=== PATIENT | female | born 1980 | race Caucasian/White ===

== ENCOUNTER 2020-09-28 12:19 | Inpatient (IN) | payer MEDICARE, SELFPAY ==
[2020-09-28] VITALS (9 sets, daily range): BP systolic 103–142; BP diastolic 57–86; PULSE 81–107; RESP 14–22; TEMP 36.6–36.8; O2SAT 93–98; BMI 26.7
--- NOTE | 2020-09-28 14:14 | CT_ITS ---
WS: [id number] CT head wo con* 13265 REASON FOR EXAM: AMS IV CONTRAST ADMINISTERED: Noncontrast TOTAL EXAM DLP: 1161.[address] scans at [facility] use at least one of these dose optimization techniques: automat ed exposure control; mA and/or kV adjustment per patient size (includes targeted exams where dose is matched to clinical indication); or iterative reconstruction. FINDINGS: Bony calvarium is intact. There is no midline shift or other significant mass effect. No findings of intracranial hemorrhage. There are 2 small areas of vague hypoattenuation in the great white matter junction just above the le jose guadalupe of the basal ganglia in the left frontoparietal region. (Axial image 28) No other significant foc al brain parenchymal abnormality. No ventricular dilatation. No abnormality within the posterior fossa. CT/CT head wo con* 56509 IMPRESSION: The small areas of vague low attenuation described above are not readily defina ble on the previous CT scan of 08/22/2018. Do not think this represents an acute finding. Given a history of MS this may represent areas of demyelinization, MS plaques. No other significant findings.
--- NOTE | 2020-09-28 16:19 | ED_ITS ---
Documented by User: Evgeny Stroud DO 09/29/20 11:02 HPI - Altered Mental Status General: Chief Complaint: Altered Mental Status Stated Complaint: seizure 2days ago/insomnia,ams/nausea Time Seen by Provider: 09/28/20 16:18 History of Present Illness: HPI narrative: 40-year-old female brought to the emergency room by private vehicle. Recently was having a seizure began about 1 year ago had a seizure of couple days ago and increased her Lyrica. Normally patient is alert and oriented x4 she has a history of MS. She is confused at this point she believes is February 2024. complaint: altered mental status and confusion Onset (ago): hour(s) Timing confirmed by: spouse Severity: severe Consistency of symptoms: Getting Worse Context: other (History of MS) Associated symptoms: Reports delusions; Deny auditory hallucinations, visual hallucinations, depression, homicidal ideation, racing thoughts or suicidal ideation Review of Systems Const: Denies: fever(s), chills, body aches, change in appetite, fatigue or malaise Card: Denies: chest pain, edema, dyspnea on exertion or orthopnea Resp: Denies: dyspnea, productive cough or non-productive cough GI: Denies: abdominal pain, nausea, vomiting, hematemesis, coffee ground emesis, diarrhea, constipation, bloating, hematochezia or melena : Denies: flank pain, difficulty voiding, dysuria, urinary frequency or urinary urgency Skin/Breast: Denies: rash or pruritus Psych: Denies: depression, visual hallucinations, auditory hallucinations, suicidal ideation or homicidal ideation [facility] ED PFSH: Medical History (Updated 09/28/20 @ 22:03 by Zoë Miles) Anxiety and depression Bipolar disorder Chronic pain Multiple sclerosis Surgical History (Updated 09/28/20 @ 21:34 by Hiram Rush MD) History of cholecystectomy History of hysterectomy Family History (Updated 09/28/20 @ 21:34 by Hiram Rush MD) Other CAD (coronary artery disease) Diabetes Social History (Updated 09/28/20 @ 21:34 by Hiram Rush MD) Smoking and tobacco status: current every day smoker Alcohol intake: never Substance/Drug Use: never Physical Exam Const: COMMON NORMALS: no acute distress GENERAL APPEARANCE: cooperative and comfortable ORIENTATION/CONSCIOUSNESS: Yes awake HENMT: COMMON NORMALS: normocephalic, atraumatic and hearing grossly normal bilaterally HEAD & SCALP: normocephalic and atraumatic Neck/C-Spine: COMMON NORMALS: no JVD Resp: COMMON NORMALS: normal respiratory effort, No retractions, No use of accessory muscles and clear to auscultation bilaterally AUSCULTATION: clear to auscultation bilaterally Cardio: COMMON NORMALS: no JVD, regular rate, regular rhythm and No murmurs present (Cardio) RATE: regular rate RHYTHM: regular rhythm GI: COMMON NORMALS: Soft to palpation and No hepatosplenomegaly present AUSCULTATION: Yes normoactive bowel sounds PALPATION: Yes Soft to palpation, No Tenderness to palpation present (GI), No Guarding due to palpation present (GI) and Yes No hepatosplenomegaly present Extremity: COMMON NORMALS: normal to inspection, capillary refill normal, no clubbing, cyanosis or edema, no calf tenderness and no pedal edema Psych: THOUGHT CONTENT: Yes delusions Skin: COMMON NORMALS: no rashes or lesions noted GENERAL SKIN EXAM: no rashes or lesions noted Course Vital Signs: Vital signs: Vital Signs Temperature 98.3 F 09/29/20 07:49 Pulse Rate 89 09/29/20 07:49 Respiratory Rate 16 09/29/20 07:49 Blood Pressure 121/82 09/29/20 07:49 Pulse Oximetry 94 09/29/20 07:49 MDM - Altered Mental Status MDM Narrative: Medical decision making narrative: Care turned over to Dr. Feng. Work-up in progress. See his his notes for final diagnosis and disposition. Lab Data: Labs: Lab Results 09/28/20 09/28/20 09/28/20 Range/Units 17:17 17:17 17:17 WBC 13.0 H (4.0-10.0) 10^3/ uL RBC 5.08 (4.1-5.3) 10^6/u L Hgb 15.0 (11.5-15.3) g/dL Hct 48.0 H (37.0-47.0) % MCV 94.5 (81-99) fL MCH 29.5 (28.0-34.0) pg MCHC 31.3 (30.0-36.0) g/dL RDW 13.9 (12.1-15.1) % Plt Count 308 (130-400) 10^3/c mm MPV 10.8 H (7.4-10.4) fL Neut % (Auto) 65.3 % Lymph % (Auto) 27.2 % Clark % (Auto) 6.8 % Eos % (Auto) 0.2 % Baso % (Auto) 0.2 % Neut # (Auto) 8.50 H (1.8-7.7) 10^3/u L Lymph # (Auto) 3.6 (0.8-4.8) 10^3/u L Clark # (Auto) 0.9 (0.2-0.9) 10^3/u L Eos # (Auto) 0.0 (0.0-0.8) 10^3/u L Baso # (Auto) 0.0 (0.0-0.1) 10^3/u L Nucleated RBC % (a uto) 0 % Nucleated RBCs # 0.0 /100WBC Sodium 140 (136-145) mmol/L Potassium 3.5 (3.5-5.1) mmol/L Chloride 100 (98-107) mmol/L Carbon Dioxide 27 (22-29) mmol/L Anion Gap 16.5 (5-19) BUN 10 (6-20) mg/dL Creatinine 0.6 (0.5-0.9) mg/dL GFR Calculation 110.7 (90-130) mL/min Glucose 101 (65-115) mg/dL Calculated Osmolal ity 289 (285-295) mOsm/k g Lactic Acid 0.9 (0.5-2.2) mmol/L Calcium 9.5 (8.5-10.5) mg/dL Magnesium 2.2 (1.7-2.3) mg/dL Total Bilirubin 0.3 (0.15-1.2) mg/dL AST 17 (0-32) U/L ALT 16 (0-33) U/L Alkaline Phosphata se 59 (35-105) IU/L Ammonia (11-51) umol/L Troponin T Baselin e (0-10) ng/L Total Protein 7.8 (6.6-8.7) g/dL Albumin 4.6 (3.5-5.2) g/dL Globulin 3.2 (1.3-4.6) g/dL Urine Color (Yellow) Urine Appearance (CLEAR) Urine pH (5-7) Ur Specific Gravit y (1.005-1.030) Urine Protein (Negative) Urine Glucose (UA) (Normal) Urine Ketones (Negative) Urine Blood (Negative) Urine Nitrate (Negative) Urine Bilirubin (Negative) Urine Urobilinogen (Negative) mg/dL Ur Leukocyte Radha ase (Negative) Urine RBC (0-2) /hpf Urine WBC (0-5) /hpf Ur Squamous Epith Cells (0-5) /hpf Amorphous Sediment Urine Bacteria (NONE) /hpf Urine Mucus /hpf Urine Opiates Scre en (Negative) ng/mL Ur Barbiturates Sc reen (Negative) ng/mL Ur Phencyclidine S crn (Negative) ng/mL Ur Amphetamines Sc reen (Negative) ng/mL U Benzodiazepines Scrn (Negative) ng/mL Urine Cocaine Scre en (Negative) ng/mL U Marijuana (THC) Screen (Negative) ng/mL 09/28/20 09/28/20 09/28/20 Range/Units 17:17 17:17 19:45 WBC (4.0-10.0) 10^3/ uL RBC (4.1-5.3) 10^6/u L Hgb (11.5-15.3) g/dL Hct (37.0-47.0) % MCV (81-99) fL MCH (28.0-34.0) pg MCHC (30.0-36.0) g/dL RDW (12.1-15.1) % Plt Count (130-400) 10^3/c mm MPV (7.4-10.4) fL Neut % (Auto) % Lymph % (Auto) % Clark % (Auto) % Eos % (Auto) % Baso % (Auto) % Neut # (Auto) (1.8-7.7) 10^3/u L Lymph # (Auto) (0.8-4.8) 10^3/u L Clark # (Auto) (0.2-0.9) 10^3/u L Eos # (Auto) (0.0-0.8) 10^3/u L Baso # (Auto) (0.0-0.1) 10^3/u L Nucleated RBC % (a uto) % Nucleated RBCs # /100WBC Sodium (136-145) mmol/L Potassium (3.5-5.1) mmol/L Chloride (98-107) mmol/L Carbon Dioxide (22-29) mmol/L Anion Gap (5-19) BUN (6-20) mg/dL Creatinine (0.5-0.9) mg/dL GFR Calculation (90-130) mL/min Glucose (65-115) mg/dL Calculated Osmolal ity (285-295) mOsm/k g Lactic Acid (0.5-2.2) mmol/L Calcium (8.5-10.5) mg/dL Magnesium (1.7-2.3) mg/dL Total Bilirubin (0.15-1.2) mg/dL AST (0-32) U/L ALT (0-33) U/L Alkaline Phosphata se (35-105) IU/L Ammonia 19 (11-51) umol/L Troponin T Baselin e 6 (0-10) ng/L Total Protein (6.6-8.7) g/dL Albumin (3.5-5.2) g/dL Globulin (1.3-4.6) g/dL Urine Color Yellow (Yellow) Urine Appearance Clear (CLEAR) Urine pH 6.5 (5-7) Ur Specific Gravit y 1.020 (1.005-1.030) Urine Protein Neg (Negative) Urine Glucose (UA) Norm (Normal) Urine Ketones 2+ H (Negative) Urine Blood 3+ H (Negative) Urine Nitrate Negative (Negative) Urine Bilirubin 1+ H (Negative) Urine Urobilinogen 1 H (Negative) mg/dL Ur Leukocyte Radha ase Negative (Negative) Urine RBC 40-50 H (0-2) /hpf Urine WBC 0-4 H (0-5) /hpf Ur Squamous Epith Cells 0-4 H (0-5) /hpf Amorphous Sediment Not Reportable Urine Bacteria 2+ H (NONE) /hpf Urine Mucus 1+ /hpf Urine Opiates Scre en (Negative) ng/mL Ur Barbiturates Sc reen (Negative) ng/mL Ur Phencyclidine S crn (Negative) ng/mL Ur Amphetamines Sc reen (Negative) ng/mL U Benzodiazepines Scrn (Negative) ng/mL Urine Cocaine Scre en (Negative) ng/mL U Marijuana (THC) Screen (Negative) ng/mL 09/28/20 Range/Units 19:45 WBC (4.0-10.0) 10^3/ uL RBC (4.1-5.3) 10^6/u L Hgb (11.5-15.3) g/dL Hct (37.0-47.0) % MCV (81-99) fL MCH (28.0-34.0) pg MCHC (30.0-36.0) g/dL RDW (12.1-15.1) % Plt Count (130-400) 10^3/c mm MPV (7.4-10.4) fL Neut % (Auto) % Lymph % (Auto) % Clark % (Auto) % Eos % (Auto) % Baso % (Auto) % Neut # (Auto) (1.8-7.7) 10^3/u L Lymph # (Auto) (0.8-4.8) 10^3/u L Clark # (Auto) (0.2-0.9) 10^3/u L Eos # (Auto) (0.0-0.8) 10^3/u L Baso # (Auto) (0.0-0.1) 10^3/u L Nucleated RBC % (a uto) % Nucleated RBCs # /100WBC Sodium (136-145) mmol/L Potassium (3.5-5.1) mmol/L Chloride (98-107) mmol/L Carbon Dioxide (22-29) mmol/L Anion Gap (5-19) BUN (6-20) mg/dL Creatinine (0.5-0.9) mg/dL GFR Calculation (90-130) mL/min Glucose (65-115) mg/dL Calculated Osmolal ity (285-295) mOsm/k g Lactic Acid (0.5-2.2) mmol/L Calcium (8.5-10.5) mg/dL Magnesium (1.7-2.3) mg/dL Total Bilirubin (0.15-1.2) mg/dL AST (0-32) U/L ALT (0-33) U/L Alkaline Phosphata se (35-105) IU/L Ammonia (11-51) umol/L Troponin T Baselin e (0-10) ng/L Total Protein (6.6-8.7) g/dL Albumin (3.5-5.2) g/dL Globulin (1.3-4.6) g/dL Urine Color (Yellow) Urine Appearance (CLEAR) Urine pH (5-7) Ur Specific Gravit y (1.005-1.030) Urine Protein (Negative) Urine Glucose (UA) (Normal) Urine Ketones (Negative) Urine Blood (Negative) Urine Nitrate (Negative) Urine Bilirubin (Negative) Urine Urobilinogen (Negative) mg/dL Ur Leukocyte Radha ase (Negative) Urine RBC (0-2) /hpf Urine WBC (0-5) /hpf Ur Squamous Epith Cells (0-5) /hpf Amorphous Sediment Urine Bacteria (NONE) /hpf Urine Mucus /hpf Urine Opiates Scre en Negative (Negative) ng/mL Ur Barbiturates Sc reen Negative (Negative) ng/mL Ur Phencyclidine S crn Negative (Negative) ng/mL Ur Amphetamines Sc reen Negative (Negative) ng/mL U Benzodiazepines Scrn Positive H (Negative) ng/mL Urine Cocaine Scre en Negative (Negative) ng/mL U Marijuana (THC) Screen Negative (Negative) ng/mL Discharge Plan Discharge Patient Disposition: Admitted As Inpatient Admit Provider: Hiram Rush Clinical Impression: Acute alteration in mental status Condition: Stable Referrals: Inez Trivedi DO [Primary Care Provider] - Discharge Date/Time: 09/28/20 23:37 Sign Out Sign Out Data: Patient Sign Out occurred on 09/28/20 at 18:57. Patient's care was discussed, and care was transferred from to Zoë Miles. Coding Level of Care Code ED B2B Outside Sales Representative for Chg Fwd Exam Comprehensive Documented by User: Zoë Miles 09/29/20 01:36 HPI - Altered Mental Status General: Chief Complaint: Altered Mental Status Stated Complaint: seizure 2days ago/insomnia,ams/nausea Time Seen by Provider: 09/28/20 16:18 PFS ED PFSH: Medical History (Updated 09/28/20 @ 22:03 by Zoë Miles) Anxiety and depression Bipolar disorder Chronic pain Multiple sclerosis Surgical History (Updated 09/28/20 @ 21:34 by Hiram Rush MD) History of cholecystectomy History of hysterectomy Family History (Updated 09/28/20 @ 21:34 by Hiram Rush MD) Other CAD (coronary artery disease) Diabetes Social History (Updated 09/28/20 @ 21:34 by Hiram Rush MD) Smoking and tobacco status: current every day smoker Alcohol intake: never Substance/Drug Use: never Course Vital Signs: Vital signs: Vital Signs Temperature 98.3 F 09/29/20 07:49 Pulse Rate 89 09/29/20 07:49 Respiratory Rate 16 09/29/20 07:49 Blood Pressure 121/82 09/29/20 07:49 Pulse Oximetry 94 09/29/20 07:49 MDM - Altered Mental Status MDM Narrative: Medical decision making narrative: 1916 -Case turned over to me at change of shift from Dr. Stroud. Please see his notes for his history, physical exam and medical decision-making notes. Upon my history the patient is confused and her states she is been confused since yesterday. Yesterday she was much more somnolent and would not say much. He states that she has not slept in 2 nights. She is also been vomiting. He states everything that she eats or drinks seems to be vomited back up. Today she is talking more but has not complained of any abdominal pain. He states that today she just acts inappropriately such as laughing at things that are serious and is just bizarre in her behavior. Patient did have seizures on Thursday. 1 in the morning and 1 in the evening. This would be the second and third seizure of the patient's life. Otherwise the patient has not complained or exhibited any other problems. 2050 -Case endorsed to Dr. Rush. This is possibly a medication reaction versus another type of infectious etiology. I did discuss performing a lumbar puncture with Dr. Rush and after he is seen the patient he will determine whe ther or not he wants to proceed with this. Lab Data: Attestation: I reviewed the patient's lab results. Labs: Lab Results 09/28/20 09/28/20 09/28/20 Range/Units 17:17 17:17 17:17 WBC 13.0 H (4.0-10.0) 10^3/ uL RBC 5.08 (4.1-5.3) 10^6/u L Hgb 15.0 (11.5-15.3) g/dL Hct 48.0 H (37.0-47.0) % MCV 94.5 (81-99) fL MCH 29.5 (28.0-34.0) pg MCHC 31.3 (30.0-36.0) g/dL RDW 13.9 (12.1-15.1) % Plt Count 308 (130-400) 10^3/c mm MPV 10.8 H (7.4-10.4) fL Neut % (Auto) 65.3 % Lymph % (Auto) 27.2 % Clark % (Auto) 6.8 % Eos % (Auto) 0.2 % Baso % (Auto) 0.2 % Neut # (Auto) 8.50 H (1.8-7.7) 10^3/u L Lymph # (Auto) 3.6 (0.8-4.8) 10^3/u L Clark # (Auto) 0.9 (0.2-0.9) 10^3/u L Eos # (Auto) 0.0 (0.0-0.8) 10^3/u L Baso # (Auto) 0.0 (0.0-0.1) 10^3/u L Nucleated RBC % (a uto) 0 % Nucleated RBCs # 0.0 /100WBC Sodium 140 (136-145) mmol/L Potassium 3.5 (3.5-5.1) mmol/L Chloride 100 (98-107) mmol/L Carbon Dioxide 27 (22-29) mmol/L Anion Gap 16.5 (5-19) BUN 10 (6-20) mg/dL Creatinine 0.6 (0.5-0.9) mg/dL GFR Calculation 110.7 (90-130) mL/min Glucose 101 (65-115) mg/dL Calculated Osmolal ity 289 (285-295) mOsm/k g Lactic Acid 0.9 (0.5-2.2) mmol/L Calcium 9.5 (8.5-10.5) mg/dL Magnesium 2.2 (1.7-2.3) mg/dL Total Bilirubin 0.3 (0.15-1.2) mg/dL AST 17 (0-32) U/L ALT 16 (0-33) U/L Alkaline Phosphata se 59 (35-105) IU/L Ammonia (11-51) umol/L Troponin T Baselin e (0-10) ng/L Total Protein 7.8 (6.6-8.7) g/dL Albumin 4.6 (3.5-5.2) g/dL Globulin 3.2 (1.3-4.6) g/dL Urine Color (Yellow) Urine Appearance (CLEAR) Urine pH (5-7) Ur Specific Gravit y (1.005-1.030) Urine Protein (Negative) Urine Glucose (UA) (Normal) Urine Ketones (Negative) Urine Blood (Negative) Urine Nitrate (Negative) Urine Bilirubin (Negative) Urine Urobilinogen (Negative) mg/dL Ur Leukocyte Radha ase (Negative) Urine RBC (0-2) /hpf Urine WBC (0-5) /hpf Ur Squamous Epith Cells (0-5) /hpf Amorphous Sediment Urine Bacteria (NONE) /hpf Urine Mucus /hpf Urine Opiates Scre en (Negative) ng/mL Ur Barbiturates Sc reen (Negative) ng/mL Ur Phencyclidine S crn (Negative) ng/mL Ur Amphetamines Sc reen (Negative) ng/mL U Benzodiazepines Scrn (Negative) ng/mL Urine Cocaine Scre en (Negative) ng/mL U Marijuana (THC) Screen (Negative) ng/mL 09/28/20 09/28/20 09/28/20 Range/Units 17:17 17:17 19:45 WBC (4.0-10.0) 10^3/ uL RBC (4.1-5.3) 10^6/u L Hgb (11.5-15.3) g/dL Hct (37.0-47.0) % MCV (81-99) fL MCH (28.0-34.0) pg MCHC (30.0-36.0) g/dL RDW (12.1-15.1) % Plt Count (130-400) 10^3/c mm MPV (7.4-10.4) fL Neut % (Auto) % Lymph % (Auto) % Clark % (Auto) % Eos % (Auto) % Baso % (Auto) % Neut # (Auto) (1.8-7.7) 10^3/u L Lymph # (Auto) (0.8-4.8) 10^3/u L Clark # (Auto) (0.2-0.9) 10^3/u L Eos # (Auto) (0.0-0.8) 10^3/u L Baso # (Auto) (0.0-0.1) 10^3/u L Nucleated RBC % (a uto) % Nucleated RBCs # /100WBC Sodium (136-145) mmol/L Potassium (3.5-5.1) mmol/L Chloride (98-107) mmol/L Carbon Dioxide (22-29) mmol/L Anion Gap (5-19) BUN (6-20) mg/dL Creatinine (0.5-0.9) mg/dL GFR Calculation (90-130) mL/min Glucose (65-115) mg/dL Calculated Osmolal ity (285-295) mOsm/k g Lactic Acid (0.5-2.2) mmol/L Calcium (8.5-10.5) mg/dL Magnesium (1.7-2.3) mg/dL Total Bilirubin (0.15-1.2) mg/dL AST (0-32) U/L ALT (0-33) U/L Alkaline Phosphata se (35-105) IU/L Ammonia 19 (11-51) umol/L Troponin T Baselin e 6 (0-10) ng/L Total Protein (6.6-8.7) g/dL Albumin (3.5-5.2) g/dL Globulin (1.3-4.6) g/dL Urine Color Yellow (Yellow) Urine Appearance Clear (CLEAR) Urine pH 6.5 (5-7) Ur Specific Gravit y 1.020 (1.005-1.030) Urine Protein Neg (Negative) Urine Glucose (UA) Norm (Normal) Urine Ketones 2+ H (Negative) Urine Blood 3+ H (Negative) Urine Nitrate Negative (Negative) Urine Bilirubin 1+ H (Negative) Urine Urobilinogen 1 H (Negative) mg/dL Ur Leukocyte Radha ase Negative (Negative) Urine RBC 40-50 H (0-2) /hpf Urine WBC 0-4 H (0-5) /hpf Ur Squamous Epith Cells 0-4 H (0-5) /hpf Amorphous Sediment Not Reportable Urine Bacteria 2+ H (NONE) /hpf Urine Mucus 1+ /hpf Urine Opiates Scre en (Negative) ng/mL Ur Barbiturates Sc reen (Negative) ng/mL Ur Phencyclidine S crn (Negative) ng/mL Ur Amphetamines Sc reen (Negative) ng/mL U Benzodiazepines Scrn (Negative) ng/mL Urine Cocaine Scre en (Negative) ng/mL U Marijuana (THC) Screen (Negative) ng/mL 09/28/20 Range/Units 19:45 WBC (4.0-10.0) 10^3/ uL RBC (4.1-5.3) 10^6/u L Hgb (11.5-15.3) g/dL Hct (37.0-47.0) % MCV (81-99) fL MCH (28.0-34.0) pg MCHC (30.0-36.0) g/dL RDW (12.1-15.1) % Plt Count (130-400) 10^3/c mm MPV (7.4-10.4) fL Neut % (Auto) % Lymph % (Auto) % Clark % (Auto) % Eos % (Auto) % Baso % (Auto) % Neut # (Auto) (1.8-7.7) 10^3/u L Lymph # (Auto) (0.8-4.8) 10^3/u L Clark # (Auto) (0.2-0.9) 10^3/u L Eos # (Auto) (0.0-0.8) 10^3/u L Baso # (Auto) (0.0-0.1) 10^3/u L Nucleated RBC % (a uto) % Nucleated RBCs # /100WBC Sodium (136-145) mmol/L Potassium (3.5-5.1) mmol/L Chloride (98-107) mmol/L Carbon Dioxide (22-29) mmol/L Anion Gap (5-19) BUN (6-20) mg/dL Creatinine (0.5-0.9) mg/dL GFR Calculation (90-130) mL/min Glucose (65-115) mg/dL Calculated Osmolal ity (285-295) mOsm/k g Lactic Acid (0.5-2.2) mmol/L Calcium (8.5-10.5) mg/dL Magnesium (1.7-2.3) mg/dL Total Bilirubin (0.15-1.2) mg/dL AST (0-32) U/L ALT (0-33) U/L Alkaline Phosphata se (35-105) IU/L Ammonia (11-51) umol/L Troponin T Baselin e (0-10) ng/L Total Protein (6.6-8.7) g/dL Albumin (3.5-5.2) g/dL Globulin (1.3-4.6) g/dL Urine Color (Yellow) Urine Appearance (CLEAR) Urine pH (5-7) Ur Specific Gravit y (1.005-1.030) Urine Protein (Negative) Urine Glucose (UA) (Normal) Urine Ketones (Negative) Urine Blood (Negative) Urine Nitrate (Negative) Urine Bilirubin (Negative) Urine Urobilinogen (Negative) mg/dL Ur Leukocyte Radha ase (Negative) Urine RBC (0-2) /hpf Urine WBC (0-5) /hpf Ur Squamous Epith Cells (0-5) /hpf Amorphous Sediment Urine Bacteria (NONE) /hpf Urine Mucus /hpf Urine Opiates Scre en Negative (Negative) ng/mL Ur Barbiturates Sc reen Negative (Negative) ng/mL Ur Phencyclidine S crn Negative (Negative) ng/mL Ur Amphetamines Sc reen Negative (Negative) ng/mL U Benzodiazepines Scrn Positive H (Negative) ng/mL Urine Cocaine Scre en Negative (Negative) ng/mL U Marijuana (THC) Screen Negative (Negative) ng/mL Imaging Data^: CT Head: Radiologist's impression: [address] [place] [address] CT Scan Report Signed Patient: Dany Gibbs #: [id number] : 1980Acct#:[id number] Age/Sex: 40 / FADM Date: 09/28/20 Loc: ERRoom/Bed: Attending Dr: Ordering Provider/Ordering MD: Evgeny Stroud DO Date of Service: 09/28/20 Procedure(s): CT head wo con* [id number] Accession Number(s): [id number] Report Number: [id number] WS: [id number] CT head wo con* [id number] REASON FOR EXAM: AMS IV CONTRAST ADMINISTERED: Noncontrast TOTAL EXAM DLP: 1161.[address] scans at [facility] use at least one of these dose optimization techniques: automated exposure control; mA and/or kV adjustment per patient size (includes targeted exams where dose is matched to clinical indication); or iterative reconstruction. FINDINGS: Bony calvarium is intact. There is no midline shift or other significant mass effect. No findings of intracranial hemorrhage. There are 2 small areas of vague hypoattenuation in the great white matter junction just above the level of the basal ganglia in the left frontoparietal region. (Axial image 28) No other significant focal brain parenchymal abnormality. No ventricular dilatation. No abnormality within the posterior fossa. CT/CT head wo con* [id number] IMPRESSION: The small areas of vague low attenuation described above are not readily definable on the previous CT scan of 08/22/2018. Do not think this represents an acute finding. Given a history of MS this may represent areas of demye linization, MS plaques. No other significant findings. Dictated By:Sonny Du Jr, MD Signed By:Sonny Du Jr MDSigned Date/Time:09/28/20 1710 DD/ 1658 EKG Data^: EKG 1: Attestation: I personally reviewed and interpreted this EKG as follows: EKG interpretation date: 09/28/20 EKG interpretation time: 19:37 Interpretation: Normal sinus rhythm at 81 beats a minute, normal axis, no blocks, T wave inversions V2 and V3, no other acute ST or T wave changes. Discharge Plan Discharge Patient Disposition: Admitted As Inpatient Admit Provider: Hiram Rush Clinical Impression: Acute alteration in mental status Condition: Stable Referrals: Inez Trivedi DO [Primary Care Provider] - Discharge Date/Time: 09/28/20 23:37 Sign Out Sign Out Data: Patient Sign Out occurred on 09/28/20 at 18:57. Patient's care was discussed, and care was transferred from to Zoë Miles. Coding Level of Care Code ED B2B Outside Sales Representative for [place] Fwizaiah Exam Comprehensive
[2020-09-28 17:42] LABS: Basophils % 0.2 %; Eosinophils % 0.2 %; Lymphocytes # 3.6 10^3/uL (0.8-4.8); Lymphocytes % 27.2 %; Mean Corpuscular HGB Conc 31.3 g/dL (30.0-36.0); Mean Corpuscular Hemoglobin 29.5 pg (28.0-34.0); Mean Corpuscular Volume 94.5 fL (81-99); Mean Platelet Volume 10.8 fL (7.4-10.4); Monocytes # 0.9 10^3/uL (0.2-0.9); Monocytes % 6.8 %; Neutrophils % 65.3 %; Nucleated Red Blood Cells % 0 %; Platelet Count 308 10^3/cmm (130-400); Red Blood Count 5.08 10^6/uL (4.1-5.3); Red Cell Distribution Width 13.9 % (12.1-15.1)
[2020-09-28 17:54] LABS: Ammonia 19 umol/L (11-51)
[2020-09-28 17:57] LABS: Alanine Aminotransferase 16 U/L (0-33); Albumin Level 4.6 g/dL (3.5-5.2); Alkaline Phosphatase 59 IU/L (35-105); Anion Gap 16.5 (5-19); Aspartate Amino Transferase 17 U/L (0-32); Blood Urea Nitrogen 10 mg/dL (6-20); Calcium 9.5 mg/dL (8.5-10.5); Carbon Dioxide 27 mmol/L (22-29); Chloride 100 mmol/L (98-107); Globulin 3.2 g/dL (1.3-4.6); Glomerular Filtration Rate 110.7 mL/min (90-130); Glucose 101 mg/dL (65-115); Magnesium 2.2 mg/dL (1.7-2.3); Osmolality Calculated 289 mOsm/kg (285-295); Potassium 3.5 mmol/L (3.5-5.1); Sodium 140 mmol/L (136-145); Total Bilirubin 0.3 mg/dL (0.15-1.2); Total Protein 7.8 g/dL (6.6-8.7)
[2020-09-28] MEDS: ondansetron 2 mg/ML SDV 2 mL 4 MG IVP (17:58)
[2020-09-28 18:00] LABS: Lactic Sepsis W/Reflex 0.9 mmol/L (0.5-2.2)
--- NOTE | 2020-09-28 19:19 | ECG_ITS ---
[facility] Test Date: 2020-09-28 Pat Name: Tabby Gibbs Department: Room: Gender: Female Shanker Out: : 1980 Requested By: Zoë Kennedy Order Number: [id number] Elizabeth MD: Sun Gutiérrez M.D. 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 [id number]
[2020-09-28 19:50] LABS: Troponin(5th) Baseline 6 ng/L (0-10)
[2020-09-28 20:08] LABS: Add Urine Microscopic? YES; Bilirubin Urine 1+ (Negative); Blood Urine 3+ (Negative); Glucose Urine UA Norm (Normal); Ketones Urine 2+ (Negative); Leukocyte Esterase Urine Negative (Negative); Nitrate Urine Negative (Negative); Protein Urine Neg (Negative); Urine Appearance Clear (CLEAR); Urine Color Yellow (Yellow); Urobilinogen Urine 1 mg/dL (Negative); pH Urine 6.5 (5-7)
[2020-09-28 20:09] LABS: Amphetamines Screen Urine Negative (Negative); Barbiturates Screen Urine Negative (Negative); Benzodiazepines Screen Urine Positive (Negative); Cocaine Screen Urine Negative (Negative); Opiate Screen Urine Negative (Negative); PCP Screen Urine Negative (Negative); RBC Urine 40-50 /hpf (0-2); THC Screen Urine Negative (Negative)
[2020-09-28 20:10] LABS: WBC Urine 0-4 /hpf (0-5)
[2020-09-28 20:11] LABS: Add Urine Culture? Yes; Bacteria Urine 2+ /hpf; Mucus Urine 1+ /hpf; Squamous Epithelial Cell Urine 0-4 /hpf (0-5)
--- NOTE | 2020-09-28 20:28 | XRR_ITS ---
PROCEDURE INFORMATION: Exam: XR Chest, 1 View Exam date and time: 09/28/2020 8:52 PM Age: 40 years old Clinical indication: Other: AMS; Patient HX: Seizure 2 days ago; Additional info: Altered mental status TECHNIQUE: Imaging protocol: XR of the chest Views: 1 view. COMPARISON: CR Chest 1 [place] [id number] 08/22/2018 6:02 PM FINDINGS: Lungs: Unremarkable. No consolidation. Pleural space: Unremarkable. No pleural effusion. No pneumothorax. Heart/Mediastinum: Unremarkable. No cardiomegaly. Bones/joints: Unremarkable. XR/XR chest 1V portable [id number] IMPRESSION: No acute findings.
--- NOTE | 2020-09-28 21:19 | ECG_ITS ---
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 Measurements Intervals [place] Rate: 86 P: 52 CO: 136 QRS: 35 QRSD: 96 T: 227 QT: 384 QTc: 461 Interpretive Statements SINUS RHYTHM ST DEVIATION AND MODERATE T-WAVE ABNORMALITY, CONSIDER INFERIOR ISCHEMIA [-0.1+ mV T WAVE IN II/aVF] ARTIFACT Compared to ECG 09/28/2020 19:37:03 Possible ischemia now present T-wave abnormality still present Electronically Signed On 09-29-2020 11:37:01 LICENSING COORDINATOR by Sun Gutiérrez M.D. [id number]
--- NOTE | 2020-09-28 21:28 | PM.HP ---
Providers/Chief Complaint Primary Care Provider: Inez Trivedi DO Chief Complaint: seizure 2days ago/insomnia,ams/nausea History of Present Illness Tabby Gibbs is a 40 year old female with a past medical history of bipolar disorder not on any antipsychotic medications, anxiety and depression, history of multiple sclerosis relapsing remitting, chronic urinary incontinence, who presents to [facility] due to altered mental status and seizures. Patient is alert oriented x3, answers most questions appropriately, her speech is pressured, she has flight of ideas, pupils are dilated, she avoids eye contact at times, affect is inappropriate, is fidgeting in bed, has akathsia, resting tremor, at times can have muscle rigidity and repetitive motions of her hands when she is speaking, and strange automatisms. She does not know why she is here in the emergency room, she denies feeling down depressed or sad, denies any guilty feelings, denies any lack of energy, denies any headaches, denies any blurry vision, denies any neck stiffness, has chronic pain on Lyrica, no chest pain, no shortness of breath, no fevers, no nausea, no vomiting, no falls, no injuries, no drug use. Patient's at bedside tells me that she is here because on Thursday she had 2 grand mal seizures, new onset, the first 1 lasted 2 minutes, the second lasting 5 minutes, generalized tonic-clonic seizures, with postictal confusion, she has a neurologist who comes to [place] once a month, they called him, he advised to increase the dose of Lyrica 200 twice daily. Since then she has not had any seizures, but she has had a strange affect, she is not acting appropriately, she is alert oriented x3, answers most questions appropriate, but has a inappropriate affect, is restless, has a tremor, is commonly fidgeting, she just not acting appropriately according to . Review of Systems Const: Denies: fever(s), chills, fatigue or malaise Eyes: Denies: change in vision or blurry vision ENMT: Denies: nasal congestion Resp: Denies: dyspnea, productive cough, non-productive cough or wheezing GI: Denies: abdominal pain, nausea, vomiting, hematemesis, diarrhea, constipation, hematochezia or melena : Denies: flank pain, dysuria or urinary frequency Musc: Denies: neck pain or back pain Skin/Breast: Denies: rash Neuro: Denies: headache(s), dizziness or vertigo Psych: Denies: anxiety or depression Endo: Denies: polyuria or polydipsia Medications/Allergies Home Medications Medication Instructions Recorded Confirmed Last Taken Type dimethyl fumarate [Tecfidera] 240 mg PO BID 09/28/20 09/28/20 09/28/20 History escitalopram oxalate 20 mg PO DAILY 09/28/20 09/28/20 09/28/20 History fluoxetine 40 mg PO DAILY 09/28/20 09/28/20 09/28/20 History pregabalin 50 mg PO BID 09/28/20 09/28/20 09/28/20 History prochlorperazine maleate 5 mg PO Q6H PRN 09/28/20 09/28/20 09/27/20 History tizanidine 6 mg PO BID 09/28/20 09/28/20 09/28/20 History tolterodine 4 mg PO DAILY 09/28/20 09/28/20 09/28/20 History Allergies Allergy/AdvReac Type Severity Reaction Status Date / Time bee venom protein (honey bee) Allergy Unknown Verified 09/28/20 12:31 tree nut Allergy ALGY-Swell Verified 09/28/20 12:31 Lip/Tongue/Throat PFSH Acute PFSH: Medical History (Updated 09/28/20 @ 21:42 by Hiram Rush MD) Anxiety and depression Bipolar disorder Chronic pain Multiple sclerosis Surgical History (Updated 09/28/20 @ 21:34 by Hiram Rush MD) History of cholecystectomy History of hysterectomy Family History (Updated 09/28/20 @ 21:34 by Hiram Rush MD) Other CAD (coronary artery disease) Diabetes Social History (Updated 09/28/20 @ 21:34 by Hiram Rush MD) Smoking and tobacco status: current every day smoker Alcohol intake: never Substance/Drug Use: never Vitals/I&O/Wt Last Vital Signs Temp 98.2 F 09/28/20 12:25 Pulse 84 09/28/20 20:52 Resp 17 09/28/20 20:52 BP 115/68 09/28/20 20:52 Pulse Ox 94 09/28/20 20:52 Weight last 48 hrs Weight 83.461 kg Physical Exam Const: COMMON NORMALS: no acute distress and patient oriented x3 GENERAL APPEARANCE: cooperative and comfortable HENMT: COMMON NORMALS: normocephalic HEAD & SCALP: normocephalic Eye: COMMON NORMALS: Equal, round and reactive pupils present and EOMs intact bilaterally GENERAL EYE: appearance normal, both eyes and all related structures PUPIL: Yes Equal, round and reactive pupils present OTHER: Pupil is dilated bilaterally Neck/C-Spine: COMMON NORMALS: full ROM, no lymphadenopathy, no JVD and Thyroid normal THYROID: Thyroid normal Lymph: LYMPHATIC: no lymphadenopathy noted Resp: COMMON NORMALS: normal respiratory effort, No retractions, No use of accessory muscles and clear to auscultation bilaterally AUSCULTATION: clear to auscultation bilaterally Cardio: COMMON NORMALS: no JVD, regular rate, regular rhythm, S1 normal heart sound present, S2 normal heart sound present, No gallops present (Cardio), No clicks present (Cardio) and No murmurs present (Cardio) RATE: regular rate RHYTHM: regular rhythm HEART SOUNDS: S1 normal heart sound present and S2 normal heart sound present GI: COMMON NORMALS: Normal to inspection, nondistended, normoactive bowel sounds present, Soft to palpation, non-tender and No hepatosplenomegaly present PALPATION: Yes Soft to palpation and Yes No hepatosplenomegaly present Extremity: COMMON NORMALS: normal to inspection, full ROM and no pedal edema Neuro: COMMON NORMALS: patient oriented x3, CN's II-XII intact bilaterally, moves all extremities and no focal motor deficits Psych: COMMON NORMALS: mental status grossly normal, Normal thought process present and cooperative APPEARANCE: Yes grossly normal ATTITUDE: Yes bizarre ACTIVITY/MOTOR BEHAVIOR: Yes psychomotor agitation, Yes fidgeting and Yes Avoids eye contact (attititude/behavior) SPEECH: Yes excessive MOOD & AFFECT: Yes elevated mood THOUGHT PROCESS: disorganized and Flight of ideas present ATTENTION/CONCENTRATION: Yes attention grossly impaired and Yes concentration grossly impaired MEMORY/COGNITION: Yes memory grossly intact and Yes cognition grossly intact Data : 09/28/20 17:17 09/28/20 17:17 Micro: Microbiology 09/28/20 17:18 Blood Culture - Preliminary Blood SPECIMEN COLLECTED 09/28/20 17:17 Blood Culture - Preliminary Blood SPECIMEN COLLECTED A&P Assessment and plan (1) AMS (altered mental status): Multifactorial: -One component related to possible UTI, has chronic UTIs related to chronic urinary continence, continue Rocephin -Dose of Lyrica was doubled to 200 twice daily, Lyrica is well known to cause abnormality in thickening, disturbance in attention, euphoria, hypertonia, speech disturbances, twitching -In addition patient takes prochlorperazine for headaches, which can cause tardive dyskinesia, Parkinsonian-like symptoms -In addition patient has been taking fluoxetine and escitalopram together, tells me that the fluoxetine was stopped last week, and was told to start escitalopram, but she has been taking them together, could possibly be have a component of serotonin syndrome, pupils are dilated, she does look flushed, no autonomic instability, no hypothermia that I can see, currently no need for intervention except holding SSRIs -In addition patient was on Klonopin for about 6 months, that was recently stopped, could she be going through benzo withdrawal, this entirely possible -She has a history of bipolar disorder, does have pressured speech, flight of ideas,, distractibility, could be having an exacerbation of her bipolar PLAN: -For now we will hold Lyrica, SSRIs, prochlorperazine, monitor her clinically -Start clonazepam for tardive dyskinesia, if needed we will have to start her on quetiapine -Monitor neurochecks, monitor for symptomatology -Continue Rocephin for UTI -Monitor for the next 24-48 hrs., hopefully by then the Lyrica should be out of her symptom -Monitor vitals, monitor for hyperthermia -We will consult psychiatry in the morning Status: Acute (2) Chronic pain: Status: Acute (3) Anxiety and depression: Status: Acute (4) Multiple sclerosis: Status: Acute (5) Bipolar disorder: Status: Acute (6) Grand mal seizure: -Start on Keppra 750 twice daily -Patient is to follow-up with neurology as outpatient for EEG Status: Acute Attestations Medical Necessity Statement*: Patient requires hospitalization, outpatient with observation for altered mental status, grand mal seizure Coding Level of Care Code Acute Field Software Engineer for Delano Nice Diagnoses AMS (altered mental status) R41.82 Chronic pain G89.29 Anxiety and depression F41.9; F32.9 Multiple sclerosis G35 Bipolar disorder F31.9 Grand mal seizure G40.409
[2020-09-28 22:30] LABS: Lactic Sepsis W/Reflex 0.7 mmol/L (0.5-2.2)
[2020-09-28 22:39] LABS: Troponin 5 2HR Delta 0 ABS# (0-10)
[2020-09-29] VITALS (9 sets, daily range): BP systolic 109–129; BP diastolic 64–82; PULSE 74–105; RESP 16–18; TEMP 36.5–37.2; O2SAT 93–99
[2020-09-29] MEDS: dextrose 5%-sod chloride 0.45% 1,000 ML 75 ML IV ×2 (00:46→15:18)
[2020-09-29] MEDS: levETIRAcetam 500 mg Tablet 750 MG PO ×2 (00:47→12:26)
[2020-09-29] MEDS: cefTRIAXone 1,000 MG in sodium chloride 0.9% (plus) 50 ML 100 MG IV (00:49)
--- NOTE | 2020-09-29 01:19 | ECG_ITS ---
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 Measurements Intervals [place] Rate: 80 P: 51 CO: 136 QRS: 52 QRSD: 95 T: 55 QT: 412 QTc: 478 Interpretive Statements SINUS RHYTHM NONSPECIFIC ST & T-WAVE ABNORMALITY Compared to ECG 09/28/2020 22:15:00 Possible ischemia no longer present T-wave abnormality still present Electronically Signed On 09-29-2020 11:34:41 CARD RUNNER by Sun Gutiérrez M.D. [id number]
--- NOTE | 2020-09-29 01:35 | PC.NURSE ---
Admit Patient arrived to floor. Upon entering room, the first thing patient states is I don't know who I am. When provided with her name, patient confirms that is her and can tell me her . She does not know where or why she is here. Easily oriented. Patient cooperative. Patient's admission completed with her by phone. Seizure precautions in place. Telemetry Cardiac monitoring order placed in ER. Verified verbally with Dr. Rush that patient does not need telemetry.
[2020-09-29 03:12] LABS: Alanine Aminotransferase 13 U/L (0-33); Albumin Level 4.1 g/dL (3.5-5.2); Alkaline Phosphatase 50 IU/L (35-105); Anion Gap 16.7 (5-19); Aspartate Amino Transferase 13 U/L (0-32); Blood Urea Nitrogen 10 mg/dL (6-20); C Reactive Protein 1.4 mg/L (0.0-4.9); Carbon Dioxide 22 mmol/L (22-29); Chloride 101 mmol/L (98-107); Globulin 2.3 g/dL (1.3-4.6); Glomerular Filtration Rate 176.8 mL/min (90-130); Glucose 107 mg/dL (65-115); Osmolality Calculated 282 mOsm/kg (285-295); Potassium 3.7 mmol/L (3.5-5.1); Sodium 136 mmol/L (136-145); Total Bilirubin 0.3 mg/dL (0.15-1.2); Total Protein 6.4 g/dL (6.6-8.7)
--- NOTE | 2020-09-29 03:12 | PC.NURSE ---
Bed Alarm Patient exited room to hallway pulling her IV pole. Patient stated that she didn't know where she was going. Easily redirected to her room and back to bed. Bed alarm set. Subsequently, patient has set off bed alarm multiple times. She continues to be pleasant.
[2020-09-29 03:13] LABS: Phosphorus 3.8 mg/dL (2.5-4.5)
[2020-09-29 03:24] LABS: Procalcitonin 0.03 ng/mL (0-0.5)
[2020-09-29 03:35] LABS: Troponin 5 6HR Delta 0 ng/L (0-12)
[2020-09-29 03:36] LABS: Basophils # 0.1 10^3/uL (0.0-0.1); Basophils % 0.5 %; Eosinophils % 0.2 %; Hematocrit 41.3 % (37.0-47.0); Hemoglobin 13.3 g/dL (11.5-15.3); Lymphocytes # 2.4 10^3/uL (0.8-4.8); Lymphocytes % 23.6 %; Mean Corpuscular HGB Conc 32.2 g/dL (30.0-36.0); Monocytes # 0.7 10^3/uL (0.2-0.9); Neutrophils % 68.5 %; Nucleated Red Blood Cells % 0 %; Platelet Count 290 10^3/cmm (130-400); Red Blood Count 4.44 10^6/uL (4.1-5.3); Red Cell Distribution Width 13.8 % (12.1-15.1); White Blood Count 10.2 10^3/uL (4.0-10.0)
--- NOTE | 2020-09-29 06:21 | PC.NURSE ---
Shift Summary Patient confused and attempted to get out of bed multiple times, easily redirected. Incontinent of urine. Patient's speech pressured. Patient has not slept since admission. IV in right AC was pulled out when she was getting out of bed, replaced in right hand.
[2020-09-29] MEDS: pantoprazole DR 40 mg Tablet PO (08:45)
[2020-09-29] MEDS: CLONazepam 0.5 mg Tablet PO (08:45)
[2020-09-29 11:16] LABS: HCG, Serum Qual Negative (Negative)
[2020-09-29 11:22] LABS: Alcohol Level < 10 mg/dL (0-10)
--- NOTE | 2020-09-29 11:54 | PC.CHAP ---
Pastoral Care Encounter/Spiritual Assessment Type of Contact [] Declined science manager visit [] Patient/Family/Request visit [] Outpatient visit [] Follow-up visit [] Physician referral [] Code/Alert [X] Routine visit [] Staff referral [] Actively dying [] Patient sleeping [] Family support [] [] Out of room [] Palliative care [] [] Receiving care in room [] Pre-surgical visit [] Trauma [] Long length of stay [] ICU visit [] Other: Relational/Emotional Strength [] Patient feels connected with others/family/visitors/staff [] Distress [] Loneliness/isolation [] Abandonment Spirituality of Patient [] Person of Billei [] Attends Voodoo of their Billie [] Believes in Prayer [] Reads Bible or Anglican materials [] There are Spiritual issues to be addressed Lead Pastor Interventions [] Prayer [] Active listening [] Non-anxious presence [] Spiritual/emotional support [] Crisis/trauma care [] Spiritual counseling [] Bereavement support [] Provided bereavement packet [] Provided Bible/devotional materials [] Provided toy/stuffed animal, coloring book to patient or family member [] Provided Communion [] Anointing/[place] [] Salvation [] Completed spiritual assessment [] Other: Impact on Illness or Injury [] Angry [] Fearful [] Anxious [] Often cries [] Exhaustion [] Unable to work [] Unable to attend hindu [] Unable to walk/stand [] Unable to read [] Unable to drive [] Unable to eat/drink [] Unable to sleep [] Unable to be with family [] Patient intubated [] Other: Summary Time spent with patient
--- NOTE | 2020-09-29 12:11 | PC.NURSE ---
Called Ezra patient's at this time to provide an update. Ezra is requesting that the physician call him. Dr. Puente notified.
--- NOTE | 2020-09-29 15:11 | P.PN_ITS ---
Subjective Subjective: Interval history: Overnight labs H&P reviewed. Patient continues to demonstrate strange behaviors. Earlier in the day she was noted to be walking in the hallway in her underwear in spite of multiple requests to stay in her room. She is otherwise alert and awake at this present time. Knows she is in the hospital. Able to tell me her correct name, however then states she does not know how she is. Hemodynamically she has remained stable. Saturating well on room air. Medications: Reviewed: Yes Vitals/I&O/Wt Last Vital Signs Temp 98.3 F 09/29/20 11:49 Pulse 84 09/29/20 11:49 Resp 18 09/29/20 11:49 BP 125/72 09/29/20 11:49 Pulse Ox 96 09/29/20 11:49 09/29/20 09/29/20 09/29/20 06:59 14:59 22:59 Intake Total 50 / 50 220 / 220 Output Total 360 / 360 Balance -310 / -310 220 / 220 Weight last 48 hrs Weight 83.461 kg Physical Exam Narrative: EXAM NARRATIVE: GEN: Awake, alert ,no acute distress HEENT bilateral pupils noted to be semidilated, however appropriately reacting to light. CVS: S1S2 N RS: CTA B/L Abd: Soft, nt/nd , bs+ FURNACE HAND: no focal neuro deficits , patient noted to be ambulating without di fficulty. Overall affect is that of increased excitability. Data : 09/29/20 02:42 09/29/20 02:42 Micro: Microbiology 09/28/20 17:18 Blood Culture - Preliminary Blood SPECIMEN COLLECTED 09/28/20 17:17 Blood Culture - Preliminary Blood SPECIMEN COLLECTED A&P Assessment and plan (1) AMS (altered mental status): Likely to be Multifactorial: -Patient remains afebrile at this present time, has no leukocytosis, does denies any current urinary symptoms, unlikely to be a UTI. Stop all antibiotics and monitor closely. -Dose of Lyrica was doubled to 200 twice daily recently by her outpatient physician which may be contributing to her current behaviors. Lyrica is well known to cause abnormality in thickening, disturbance in attention, euphoria, hypertonia, speech disturbances, twitching. This is currently been placed on hold. -In addition patient takes prochlorperazine for headaches, which can cause tardive dyskinesia, Parkinsonian-like symptoms -In addition patient has been taking fluoxetine and escitalopram together, tells me that the fluoxetine was stopped last week, and was told to start escitalopram, but she has been taking them together, could possibly be have a component of serotonin syndrome. At this present time her blood pressure is well maintained, heart rate is within range, no diaphoresis, saturating 96% on room air, this appears less likely. -She has a history of bipolar disorder, does have pressured speech, flight of ideas,, distractibility, could be having an exacerbation of her bipolar. Psychiatry consult for the same. Status: Acute (2) Chronic pain: Status: Acute (3) Anxiety and depression: Status: Acute (4) Multiple sclerosis: Status: Acute (5) Bipolar disorder: Status: Acute (6) Grand mal seizure: -Start on Keppra 750 twice daily -Patient is to follow-up with neurology as outpatient for EEG Status: Acute Attestations Medical Necessity Statement*: Awaiting psychiatry assessment. Coding Level of Care Code Acute Business Librarian for Delano Nice Diagnoses AMS (altered mental status) R41.82 Chronic pain G89.29 Anxiety and depression F41.9; F32.9 Multiple sclerosis G35 Bipolar disorder F31.9 Grand mal seizure G40.409
--- NOTE | 2020-09-29 15:44 | P.HP_ITS ---
Providers/Chief Complaint Admitting Physician: Hiram Rush MD Primary Care Provider: Inez Trivedi DO Chief Complaint: seizure 2days ago/insomnia,ams/nausea HPI NPU History of Present Illness Tabby Gibbs is a 40 year old female who presented to the emergency department with the following report: Chief Complaint: Altered Mental Status Stated Complaint: seizure 2days ago/insomnia,ams/nausea Time Seen by Provider: 09/28/20 16:18 History of Present Illness: HPI narrative: 40-year-old female brought to the emergency room by private vehicle. Recently was having a seizure began about 1 year ago had a seizure of couple days ago and increased her Lyrica. Normally patient is alert and oriented x4 she has a history of MS. She is confused at this point she believes is February 2024. complaint: altered mental status and confusion Onset (ago): hour(s) Timing confirmed by: spouse Severity: severe Consistency of symptoms: Getting Worse Context: other (History of MS) Associated symptoms: Reports delusions; Deny auditory hallucinations, visual hallucinations, depression, homicidal ideation, racing thoughts or suicidal ideation. She was admitted to the medical unit for definitive treatment of those issues. Some confusion/altered mental status and odd behavior led to a psychiatric consult being initiated. Patient presents today reporting that he first had a seizure within the last year or so. No more seizure behavior noted and then she endorses that just prior to hospitalization there were 2 seizures noted with lead to coming to the emergency department for evaluation of her issues. Much of her history was related by her of about 16 years as she often turned to him almost as if being confused as to why the questions were being asked of her. She has had some anxiety and depression in her life but they deny psychiatric inpatient services or even significant mental health follow-up. It appears the most significant information that they relate was that about 3 weeks ago when she was reportedly taking Xanax, dose unknown and that was discontinued without any known taper in deference to the Lyrica. They deny any other significant contributory information. No history of trauma, emotional, physical or sexual abuse no real concerns about recent stressors or illness. They endorse that her life has been stable otherwise. They deny any active overuse of the Xanax and do report long-term use of benzodiazepines prior. Psychiatric history: As above. She is reportedly on disability in part due to mental illness but they do not report significant aftercare. Substance abuse history: She endorses daily cigarette use, denies daily alcohol use and denies marijuana or any illicit drug use. She is never been to rehab and never had a DUI. Family history: They deny any significant addiction history in the family there may have been some mental health issues on one side of the family and he denies any suicide attempts or completions in the family and she is never had a suicide attempt. Developmental history: He denies any contributory developmental issues reporting that she did not have problems with or delivery, learning to walk or talk or meeting her developmental milestones on time and they deny need for speech therapy, learning support, emotional support or special education classes. Psychosocial history: Does really have siblings including many half siblings. Her childhood was rep ortedly unremarkable and without trauma. Her schooling was unremarkable. They have been for 16 years and have no children. She is never been in the . They have stable housing. Legal history: Denied. Medical history: No significant issues outside of the seizures. Meds NPU Home Medications Medication Instructions Recorded Confirmed Last Taken Type dimethyl fumarate [Tecfidera] 240 mg PO BID 09/28/20 09/28/20 09/28/20 History escitalopram oxalate 20 mg PO DAILY 09/28/20 09/28/20 09/28/20 History fluoxetine 40 mg PO DAILY 09/28/20 09/28/20 09/28/20 History pregabalin 50 mg PO BID 09/28/20 09/28/20 09/28/20 History prochlorperazine maleate 5 mg PO Q6H PRN 09/28/20 09/28/20 09/27/20 History tizanidine 6 mg PO BID 09/28/20 09/28/20 09/28/20 History tolterodine 4 mg PO DAILY 09/28/20 09/28/20 09/28/20 History Allergies Allergy/AdvReac Type Severity Reaction Status Date / Time bee venom protein (honey bee) Allergy Unknown Verified 09/28/20 12:31 tree nut Allergy ALGY-Swell Verified 09/28/20 12:31 Lip/Tongue/Throat PFSH NPU PFSH: Medical History (Updated 09/30/20 @ 09:18 by Yordan Renteria MD) Anxiety and depression Bipolar disorder Chronic pain Multiple sclerosis Surgical History (Updated 09/28/20 @ 21:34 by Hiram Rush MD) History of cholecystectomy History of hysterectomy Family History (Updated 09/28/20 @ 21:34 by Hiram Rush MD) Other CAD (coronary artery disease) Diabetes Social History (Updated 09/28/20 @ 21:34 by Hiram Rush MD) Smoking and tobacco status: current every day smoker Alcohol intake: never Substance/Drug Use: never Mental Status Exam MSE Comments: This is an overweight white female with adequate grooming and eye contact in a hospital gown. No abnormal movements except for mild psychomotor agitation. Cooperative with exam in mild distress. Speech was normal rate and volume. Mood described as fine affect confused. Thought process mostly disorganized and confused at times. Thought content: Patient denied suicidal or homicidal ideation, there were no delusions reported or noted, she denied any auditory or visual hallucinations. Attention and concentration were limited and memory was unreliable but none were formally tested. She is alert and oriented times person and place. Insight and judgment are impaired, impulse control is limited. Vitals/I&O/Wt Last Vital Signs Temp 97.7 F 09/29/20 04:00 Pulse 74 09/29/20 04:00 Resp 16 09/29/20 04:00 BP 122/64 09/29/20 04:00 Pulse Ox 99 09/29/20 04:00 09/29/20 14:59 Intake Total 1220 / 1220 Output Total Balance 1220 / 1220 Weight last 48 hrs Weight 83.461 kg Data NPU : 09/30/20 03:11 09/30/20 03:11 Micro: Microbiology 09/28/20 17:18 Blood Culture - Preliminary Blood NEGATIVE TO DATE 09/28/20 17:17 Blood Culture - Preliminary Blood NEGATIVE TO DATE Microbiology 09/28/20 17:18 Blood Blood Culture - Preliminary NEGATIVE TO DATE 09/28/20 17:17 Blood Blood Culture - Preliminary NEGATIVE TO DATE A&P Assessment and plan (1) History of bipolar disorder: Status: Acute (2) Acute alteration in mental status: Status: Acute (3) Bipolar disorder: Status: Acute (4) Anxiety and depression: Status: Acute (5) Multiple sclerosis: Status: Acute (6) Grand mal seizure: Status: Acute (7) Benzodiazepine withdrawal with perceptual disturbance: Status: Acute Additional A&P Information This is a 40-year-old white female with a history of mental health treatment but reportedly no inpatient services at least not in the past 16 years during her current marriage who presents with altered mental status with likely tracing back to a medication change 3 weeks ago with reported seizure. 1. Continue current medication. Could consider readding a benzodiazepine and having a more responsible slow taper once we have a history of what the dose was before abrupt discontinuation. However this seizure and altered mental status is most likely a representation of discontinuation of her benzodiazepine without appropriate taper. 2. We will continue to follow. 3. Can consider NPU admission while her mental status is returning to normal. Attestations NPU Medical Necessity Statement*: N/A. Please refer to primary team note for medical necessity. We will work with primary team to determine whether neuropsychiatric unit would be better location for her to continue her convalescence. Coding Level of Care Code Acute Buncher Machine for Delano Nice Diagnoses History of bipolar disorder Z86.59 Acute alteration in mental status R41.82 Bipolar disorder F31.9 Anxiety and depression F41.9; F32.9 Multiple sclerosis G35 Grand mal seizure G40.409 Benzodiazepine withdrawal with perceptual disturbance F13.232
--- NOTE | 2020-09-29 18:58 | PC.NURSE ---
Addendum entered by Valeria Lozada RN 09/29/20 19:07: Patient to been seen by the psychiatrist as soon as he is available. Original Note: End of shift report Patient is alert to self and place. Patient is still attempting to get out of bed on her own and is unsteady on her feet. Patient has slip sock on.
[2020-09-30] VITALS (9 sets, daily range): BP systolic 122–138; BP diastolic 68–92; PULSE 73–89; RESP 17–18; TEMP 36.6–37.2; O2SAT 93–978
[2020-09-30] MEDS: levETIRAcetam 500 mg Tablet 750 MG PO ×2 (01:04→13:31)
[2020-09-30 03:45] LABS: Basophils # 0.1 10^3/uL (0.0-0.1); Basophils % 0.5 %; Eosinophils % 0.4 %; Hemoglobin 13.3 g/dL (11.5-15.3); Lymphocytes # 3.2 10^3/uL (0.8-4.8); Mean Corpuscular HGB Conc 33.3 g/dL (30.0-36.0); Mean Corpuscular Hemoglobin 30.1 pg (28.0-34.0); Mean Corpuscular Volume 90.5 fL (81-99); Mean Platelet Volume 10.9 fL (7.4-10.4); Monocytes # 0.9 10^3/uL (0.2-0.9); Monocytes % 8.7 %; Neutrophils # 6.03 10^3/uL (1.8-7.7); Neutrophils % 59.1 %; Nucleated Red Blood Cells % 0 %; Platelet Count 276 10^3/cmm (130-400); Red Blood Count 4.42 10^6/uL (4.1-5.3); Red Cell Distribution Width 13.5 % (12.1-15.1); White Blood Count 10.2 10^3/uL (4.0-10.0)
[2020-09-30 04:19] LABS: Procalcitonin 0.03 ng/mL (0-0.5)
[2020-09-30 04:21] LABS: Alanine Aminotransferase 14 U/L (0-33); Alkaline Phosphatase 48 IU/L (35-105); Anion Gap 14.8 (5-19); Aspartate Amino Transferase 14 U/L (0-32); Blood Urea Nitrogen 6 mg/dL (6-20); C Reactive Protein 0.8 mg/L (0.0-4.9); Calcium 8.9 mg/dL (8.5-10.5); Carbon Dioxide 25 mmol/L (22-29); Chloride 103 mmol/L (98-107); Globulin 2.2 g/dL (1.3-4.6); Glomerular Filtration Rate 136.6 mL/min (90-130); Glucose 108 mg/dL (65-115); Magnesium 2.1 mg/dL (1.7-2.3); Osmolality Calculated 286 mOsm/kg (285-295); Phosphorus 4.1 mg/dL (2.5-4.5); Potassium 3.8 mmol/L (3.5-5.1); Sodium 139 mmol/L (136-145); Total Bilirubin 0.3 mg/dL (0.15-1.2); Total Protein 6.2 g/dL (6.6-8.7)
[2020-09-30] MEDS: dextrose 5%-sod chloride 0.45% 1,000 ML 75 ML IV (06:27)
[2020-09-30] MEDS: CLONazepam 0.5 mg Tablet PO (08:27)
[2020-09-30] MEDS: pantoprazole DR 40 mg Tablet PO (08:28)
--- NOTE | 2020-09-30 13:06 | PC.NURSE ---
Arrival to floor Patient arrived to floor, patient had to be escorted by nurses to room and helped change into scrubs. Jewelry (wedding ring and watch) removed from patient. Patient has tongue ring in. Patient acting confused, when patient asked to remove tongue ring, patient only said yes and then placed her hand near her mouth. Patient would not remove ring. Physician notified. Patient exhibiting bizarre behavior, abnormally flexing left arm and extending right arm. Patient's eyes dilated and fixed, size 5mm. When patient asked to state her name and , patient stated her name was Pat Jefferson . Patient then began repeating everything nurses were asking and/or saying. Patient not following movements or people with her eyes. When asked if patient could see my hand in front of her face, patient stated she could not. Fall risk mats placed on both sides of bed. Patient now resting with one-to-one sitter.
[2020-09-30] MEDS: LORazepam 2 mg/mL INJ 1 mL 1 MG IM ×2 (14:43→21:04)
--- NOTE | 2020-09-30 14:50 | PC.NURSE ---
Patient Behavior Patient exhibiting very bizarre behavior, sitting on bed rocking back and forth, panting. Patient masturbating in her bed. Attempt at reorientation not successful. Patient just continues to repeat everything you say, will sometimes shout different sounds. Dr. Renteria notified and ordered Ativan. 1mg IM Ativan given. Patient tolerated well. Patient now resting with one-to-one sitter at bedside.
--- NOTE | 2020-09-30 16:06 | PM.PN ---
Subjective Subjective: Interval history: Patient is less interactive today. When I attempt to talk to her, she does not seem interested in responding. Per discussion with her sitter, she was noted earlier to be talking to the television in her room. Words in sentences made sense, however were out of context. According to RN she does intermittently respond to questions however this appears more selective today. Medications: Reviewed: Yes Vitals/I&O/Wt Last Vital Signs Temp 98.3 F 09/30/20 11:43 Pulse 78 09/30/20 11:43 Resp 18 09/30/20 11:43 BP 130/81 09/30/20 11:43 Pulse Ox 97 09/30/20 11:43 09/30/20 09/30/20 09/30/20 06:59 14:59 22:59 Intake Total 1000 / 2520 240 / 240 Balance 1000 / 2320 240 / 240 Physical Exam Narrative: EXAM NARRATIVE: GEN: Awake, lying in bed, does not talk to me, however does turn her head to look at the TV. It does not appear that she cannot hear me or see me as she appears to be looking at other objects in the room without difficulty. Not interactive today. CVS: S1S2 N RS: CTA B/L Abd: Soft, nt/nd , bs+ PRESSROOM WORKER: no focal neuro deficits Data : 09/30/20 03:11 09/30/20 03:11 Micro: Microbiology 09/28/20 19:45 Urine Culture - Preliminary Urine,Clean Catch 09/28/20 17:18 Blood Culture - Preliminary Blood NEGATIVE TO DATE 09/28/20 17:17 Blood Culture - Preliminary Blood NEGATIVE TO DATE A&P Assessment and plan (1) AMS (altered mental status): Likely to be Multifactorial: -Patient remains afebrile at this present time, has no leukocytosis, does denies any current urinary symptoms, unlikely to be a UTI. -Dose of Lyrica was doubled to 200 twice daily recently by her outpatient physician which may be contributing to her current behaviors. Benzodiazepenes were additionally stopped abruptly approximately 3 weeks ago. -In addition patient takes prochlorperazine for headaches, which can cause tardive dyskinesia, Parkinsonian-like symptoms -She has a history of bipolar disorder, does have pressured speech, flight of ideas,, distractibility, could be having an exacerbation of her bipolar. Today she appears less interactive. Appreciate psychaitry input. CT head without acute abnormlaities No obvious organic medical cause apparent at this time, medically stable for transfer to NPU today Status: Acute (2) Chronic pain: Status: Acute (3) Anxiety and depression: Status: Acute (4) Multiple sclerosis: Status: Acute (5) Bipolar disorder: Status: Acute (6) Grand mal seizure: -Coninue Keppra 750 twice daily -Patient is to follow-up with neurology as outpatient for EEG Status: Acute Attestations Medical Necessity Statement*: Transfer to NPU today Coding Level of Care Code Acute Keyboard Instrument Tuner for [facility] Fwd Diagnoses AMS (altered mental status) R41.82 Chronic pain G89.29 Anxiety and depression F41.9; F32.9 Multiple sclerosis G35 Bipolar disorder F31.9 Grand mal seizure G40.409
[2020-10-01 06:29] VITALS: BP 112/76; PULSE 88; RESP 16; TEMP 37.1; O2SAT 93
[2020-10-01] MEDS: levETIRAcetam 500 mg Tablet 750 MG PO ×3 (06:58→23:20)
--- NOTE | 2020-10-01 08:24 | PC.NURSE ---
REFUSED SCHEDULED CLONOPIN, PROTONIX, DETROL THIS MORNING. PT MUTE, REFUSES TO SPEAK TO NURSING STAFF
--- NOTE | 2020-10-01 09:04 | PC.NURSE ---
REFUSED SCHEDULED INJECTION ATIVAN
--- NOTE | 2020-10-01 12:23 | P.PN_ITS ---
Subjective NPU Subjective: Interval history: Tabby presented to the neuropsychiatric unit yesterday after we received a call from the hospitalist identifying that she was medically stable for transfer. She arrived according to staff mostly dependent on staff interventions. With intermittent moments of independence. Today she presents clearly still in a fog, at times responding to direct questions but at times is staring blankly. There are time she did head shakes for yes or no but it was unclear if they actually were consistent with what her actual answer should be. It has been fairly challenging to get her to take medication. When I met with her I explained the fact that we needed to likely get some benzodiazepines in her system given that this presentation is likely a withdrawal phenomenon. Status post been advised to administer IM doses of necessary. She was seen daily for yesterday and an excerpt from her previous evaluation was included below given her lack of contribution to her history and the lack of substantive changes since the evaluation. Per her 09/29/2020 psychiatric eval: History of Present Illness Tabby Gibbs is a 40 year old female who presented to the emergency department with the following report: Chief Complaint: Altered Mental Status Stated Complaint: seizure 2days ago/insomnia,ams/nausea Time Seen by Provider: 09/28/20 16:18 History of Present Illness: HPI narrative: 40-year-old female brought to the emergency room by private vehicle. Recently was having a seizure began about 1 year ago had a seizure of couple days ago and increased her Lyrica. Normally patient is alert and oriented x4 she has a history of MS. She is confused at this point she believes is February 2024. complaint: altered mental status and confusion Onset (ago): hour(s) Timing confirmed by: spouse Severity: severe Consistency of symptoms: Getting Worse Context: other (History of MS) Associated symptoms: Reports delusions; Deny auditory hallucinations, visual hallucinations, depression, homicidal ideation, racing thoughts or suicidal ideation. She was admitted to the medical unit for definitive treatment of those issues. Some confusion/altered mental status and odd behavior led to a psychiatric consult being initiated. Patient presents today reporting that he first had a seizure within the last year or so. No more seizure behavior noted and then she endorses that just prior to hospitalization there were 2 seizures noted with lead to coming to the emergency department for evaluation of her issues. Much of her history was related by her of about 16 years as she often turned to him almost as if being confused as to why the questions were being asked of her. She has had some anxiety and depression in her life but they deny ps ychiatric inpatient services or even significant mental health follow-up. It appears the most significant information that they relate was that about 3 weeks ago when she was reportedly taking Xanax, dose unknown and that was discontinued without any known taper in deference to the Lyrica. They deny any other significant contributory information. No history of trauma, emotional, physical or sexual abuse no real concerns about recent stressors or illness. They endorse that her life has been stable otherwise. They deny any active overuse of the Xanax and do report long-term use of benzodiazepines prior. Psychiatric history: As above. She is reportedly on disability in part due to mental illness but they do not report significant aftercare. Substance abuse history: She endorses daily cigarette use, denies daily alcohol use and denies marijuana or any illicit drug use. She is never been to rehab and never had a DUI. Family history: They deny any significant addiction history in the family there may have been some mental health issues on one side of the family and he denies any suicide attempts or completions in the family and she is never had a suicide attempt. Developmental history: He denies any contributory developmental issues reporting that she did not have problems with or delivery, learning to walk or talk or meeting her developmental milestones on time and they deny need for speech therapy, learning support, emotional support or special education classes. Psychosocial history: Does really have siblings including many half siblings. Her childhood was reportedly unremarkable and without trauma. Her schooling was unremarkable. They have been for 16 years and have no children. She is never been in the . They have stable housing. Legal history: Denied. Medical history: No significant issues outside of the seizures. Mental Status Exam MSE Comments: This is an overweight white female with adequate grooming and eye contact in a hospital gown. No abnormal movements except for significant psychomotor retardation to almost the point of catatonia. Uncooperative with exam in no acute distress. Speech was absent. Mood mood is not described. Thought process mostly disorganized and confused at times. Thought content: Patient did not report suicidal or homicidal ideation and did not appear to have aggression towards herself or others, there were no delusions reported or noted as she was not responsive and she did not appear to be attending to internal stimuli. Attention and concentration were impaired and memory was unable to be elicited but none were formally tested. She is alert but did not respond to questions of orientation. Insight and judgment are impaired, impulse control is impaired. Vitals/I&O/Wt Last Vital Signs Temp 98.4 F 09/30/20 16:00 Pulse 89 09/30/20 16:00 Resp 18 09/30/20 16:00 BP 138/92 09/30/20 16:00 Pulse Ox 97 09/30/20 11:43 09/30/20 09/30/20 09/30/20 06:59 14:59 22:59 Intake Total 1000 / 2520 240 / 240 240 / 480 Output Total 200 / 200 Balance 1000 / 2320 240 / 240 40 / 280 Data NPU : 09/30/20 03:11 09/30/20 03:11 Micro: Microbiology 09/28/20 19:45 Urine Culture - Preliminary Urine,Clean Catch 09/28/20 17:18 Blood Culture - Preliminary Blood NEGATIVE TO DATE 09/28/20 17:17 Blood Culture - Preliminary Blood NEGATIVE TO DATE Microbiology 09/28/20 19:45 Urine,Clean Catch Urine Culture - Preliminary 09/28/20 17:18 Blood Blood Culture - Preliminary NEGATIVE TO DATE 09/28/20 17:17 Blood Blood Culture - Preliminary NEGATIVE TO DATE A&P Additional A&P Information (1) History of bipolar disorder: (2) Acute alteration in mental status: (3) Bipolar disorder: (4) Anxiety and depression: (5) Multiple sclerosis: (6) Grand mal seizure: (7) Benzodiazepine withdrawal with perceptual disturbance: (8) rule out catatonia Additional A&P Information This is a 40-year-old white female with a history of mental health treatment but reportedly no inpatient services at least not in the past 16 years during her current marriage who presents with altered mental status with likely tracing back to a medication change 3 weeks ago with reported seizure. 1. Continue current medication. Except add back Xanax 1 mg by mouth twice a day and consider 1-2 mg IM of Ativan in hopes of breaking this near catatonic state. 2. Continue one to one but consider reducing the every 15 minute checks for safety. 3. Encourage individual, group and milieu therapy. 4. We'll continue to work for collateral information. Involuntary Hold Information 96 Hour Hold: 96 Hour Involuntary Admission: No Attestations NPU Medical Necessity Statement*: Inpatient hospitalization is medically necessary and the clinically appropriate intervention at this time. We will monitor medications and make changes as indicated. She will be in the hospital for over 2 midnight. Likely length of stay 3-5 days. Coding Level of Care Code Acute Senior Ui Ux Developer for Delano Nice
[2020-10-01 14:00] VITALS: BP 108/74; PULSE 76; RESP 18; TEMP 36.2; O2SAT 98
--- NOTE | 2020-10-01 15:00 | PC.NURSE ---
D/C 1:1 ORDER, IWONA FORTUNE/Karo.BUSTER MELENDEZ
--- NOTE | 2020-10-01 17:51 | PC.RESP ---
Smoking Cessation information sent to patient.
[2020-10-01] MEDS: LORazepam 2 mg/mL INJ 1 mL (20:54)
[2020-10-01 21:38] VITALS: BP 108/76; PULSE 93; RESP 16; TEMP 36.7; O2SAT 96
[2020-10-02 06:00] VITALS: BP 104/72; PULSE 81; RESP 17; TEMP 36.9; O2SAT 95
[2020-10-02] MEDS: CLONazepam 0.5 mg Tablet PO (09:17)
[2020-10-02] MEDS: pantoprazole DR 40 mg Tablet PO (09:17)
[2020-10-02] MEDS: levETIRAcetam 500 mg Tablet 750 MG PO (11:29)
[2020-10-02 14:00] VITALS: BP 122/85; PULSE 92; RESP 20; TEMP 36.8; O2SAT 97
--- NOTE | 2020-10-02 14:14 | P.PN_ITS ---
Subjective NPU Subjective: Interval history: Marya presents today showing some progress in her functionality. She continues to present with a near catatonic state with strange staring and facial expressions, mom is always at other people and just standing there for long periods without moving or changing position. She has been taking her medication as we have advised hopefully getting some benzodiazepines in her system will assist in breaking this presentation. Mental Status Exam MSE Comments: This is an overweight white female with adequate grooming and eye contact in hospital scrubs. No abnormal movements except for significant psychomotor retardation to almost the point of catatonia. Uncooperative with exam in no acute distress. Speech was present today but still lacked spontanei ty for the most part. Mood is not described. Thought process mostly disorganized and confused at times. Thought content: Patient did not report suicidal or homicidal ideation and did not appear to have aggression towards herself or others, there were no delusions reported or noted as she was not responsive and she did not appear to be attending to internal stimuli. Attention and concentration were impaired and memory was unable to be elicited but none were formally tested. She is alert but did not respond to questions of orientation. Insight and judgment are impaired, impulse control is impaired. Vitals/I&O/Wt Last Vital Signs Temp 98.3 F 10/02/20 20:24 Pulse 90 10/02/20 20:24 Resp 18 10/02/20 20:24 BP 139/82 10/02/20 20:24 Pulse Ox 97 10/02/20 20:24 Data NPU : 09/30/20 03:11 09/30/20 03:11 A&P Additional A&P Information (1) History of bipolar disorder: (2) Acute alteration in mental status: (3) Bipolar disorder: (4) Anxiety and depression: (5) Multiple sclerosis: (6) Grand mal seizure: (7) Benzodiazepine withdrawal with perceptual disturbance: (8) rule out catatonia Additional A&P Information This is a 40-year-old white female with a history of mental health treatment but reportedly no inpatient services at least not in the past 16 years during her current marriage who presents with altered mental status with likely tracing back to a medication change 3 weeks ago with reported seizure. 1. Continue current medication. May benzodiazepine Klonopin 0.5 mg p.o. twice daily and continue to have the Ativan IM as needed. 2. Continue one to one but consider reducing the every 15 minute checks for safety. 3. Encourage individual, group and milieu therapy. 4. We'll continue to work for collateral information. Involuntary Hold Information 96 Hour Hold: 96 Hour Involuntary Admission: No Attestations NPU Medical Necessity Statement*: Inpatient hospitalization is medically necessary and the clinically appropriate intervention at this time. We will monitor medications and make changes as indicated. Likely length of stay 3-5 days. Coding Level of Care Code Acute Community Outreach Advocate for Delano Nice
[2020-10-02 20:24] VITALS: BP 139/82; PULSE 90; RESP 18; TEMP 36.8; O2SAT 97
[2020-10-03] MEDS: levETIRAcetam 500 mg Tablet 750 MG PO ×2 (00:03→11:28)
[2020-10-03 06:00] VITALS: BP 121/82; PULSE 85; RESP 18; TEMP 36.6; O2SAT 100
[2020-10-03] MEDS: CLONazepam 0.5 mg Tablet PO ×2 (09:31→20:34)
[2020-10-03] MEDS: pantoprazole DR 40 mg Tablet PO (09:31)
--- NOTE | 2020-10-03 12:00 | PC.NURSE ---
pt taken down to [facility] shower room, bathed and washed hair with staff assist. changed into clean scrubs and underwear.
[2020-10-03 14:00] VITALS: BP 119/82; PULSE 77; RESP 16; TEMP 36.7; O2SAT 100
--- NOTE | 2020-10-03 15:45 | PM.NPN ---
Subjective NPU Subjective: Interval history: Tabby presented today continuing to show improvement in her level of communicative interactions. She continues to have moments of almost being locked in and unable to or unwilling to respond, but today was the most independent part of his care but she still was unable to articulate or unwilling to articulate what exactly is going on in her head. We discussed the importance of her continuing to take the medication especially the Klonopin as the likely culprit for any seizures or sequela she experiences the discontinuation of the Xanax. Mental Status Exam MSE Comments: This is an overweight white female with adequate grooming and eye contact in hospital scrubs. No abnormal movements except for significant psychomotor retardation with continued decreasing moments of catatonia. More cooperative with exam in no acute distress. Speech was present today with slow increasing in spontaneity. Mood described as okay, affect still odd. Thought process more organized, but still having moments where she stares blankly after clear questions are asked. Thought content: Patient did not report suicidal or homicidal ideation and did not appear to have aggression towards herself or others, there were no delusions reported or noted as she was not responsive to questions about auditory or visual hallucinations and she did not appear to be attending to internal stimuli. Attention and concentration were impaired, but were improving and memory was impaired but none were formally tested. She is alert but did not respond to questions of orientation. Insight and judgment are impaired, impulse control is impaired. Vitals/I&O/Wt Last Vital Signs Temp 98.1 F 10/03/20 14:00 Pulse 77 10/03/20 14:00 Resp 16 10/03/20 14:00 BP 119/82 10/03/20 14:00 Pulse Ox 100 10/03/20 14:00 Data NPU : 09/30/20 03:11 09/30/20 03:11 A&P Additional A&P Information (1) History of bipolar disorder: (2) Acute alteration in mental status: (3) Bipolar disorder: (4) Anxiety and depression: (5) Multiple sclerosis: (6) Grand mal seizure: (7) Benzodiazepine withdrawal with perceptual disturbance: (8) catatonia Additional A&P Information This is a 40-year-old white female with a history of mental health treatment but reportedly no inpatient services at least not in the past 16 years during her current marriage who presents with altered mental status with likely tracing back to a medication change 3 weeks ago with reported seizure. 1. Continue current medication. 2. Continue one to one but consider reducing the every 15 minute checks for safety. 3. Encourage individual, group and milieu therapy. 4. We'll continue to work for collateral information. Involuntary Hold Information 96 Hour Hold: 96 Hour Involuntary Admission: No Attestations NPU Medical Necessity Statement*: Inpatient hospitalization is medically necessary and the clinically appropriate intervention at this time. We will monitor medications and make changes as indicated. Likely length of stay 2-4 days. Coding Level of Care Code Acute Dot Compliance Specialist for Delano Nice
[2020-10-03 21:49] VITALS: BP 130/89; PULSE 80; RESP 18; TEMP 36.5; O2SAT 99
[2020-10-03] MEDS: acetaminophen 325 mg Tablet 650 MG PO (22:46)
--- NOTE | 2020-10-03 23:04 | PC.NURSE ---
PT VERBALLY RESPONSIVE PT DENIES SI/HI. DENIES AH/VH. PT IS CALM. SHE ANSWERS QUESTIONS APPROPRIATELY. PT REPORTED A HEADACHE RATED A 3 ON A 1-10 PAIN SCALE. MED NURSE NOTIFIED
[2020-10-04] MEDS: levETIRAcetam 500 mg Tablet 750 MG PO ×3 (00:42→21:14)
[2020-10-04 06:00] VITALS: BP 93/56; PULSE 86; RESP 17; TEMP 36.7; O2SAT 98
[2020-10-04] MEDS: pantoprazole DR 40 mg Tablet PO (09:16)
[2020-10-04] MEDS: CLONazepam 0.5 mg Tablet PO ×2 (09:17→21:14)
--- NOTE | 2020-10-04 13:27 | PM.NPN ---
Subjective NPU Subjective: Interval history: Tabby presents today reporting that she is doing okay. She had much more spontaneous conversation but eventually got to a point to her paranoia led to her feeling uncomfortable with answering questions. She felt compelled that her was in the building and we were hiding that from her. She has been taking her medication and showing some improvement. She reports that she is eating fine and sleeping okay. Mental Status Exam MSE Comments: This is an overweight white female with adequate grooming and eye contact in hospital scrubs. No abnormal movements except for significant psychomotor retardation with continued decreasing moments of catatonia. More cooperative with exam in no acute distress. Speech was present today with slow increasing in spontaneity. Mood described as fine, affect still odd. Thought process more organized, but still having moments where she stares blankly after clear questions are asked. Thought content: Patient did not report suicidal or homicidal ideation and did not appear to have aggression towards herself or others, there were no delusions reported, but she had moments of clear paranoia and believes that people could have information that would normally not be attainable by means other than the paranormal activity, and she was not responsive to questions about auditory or visual hallucinations and she did not appear to be attending to internal stimuli. Attention and concentration were impaired, but were improving and memory was impaired but none were formally tested. She is alert but did not respond to questions of orientation. Insight and judgment are impaired, impulse control is impaired. Vitals/I&O/Wt Last Vital Signs Temp 97.9 F 10/04/20 20:15 Pulse 82 10/04/20 20:15 Resp 16 10/04/20 20:15 BP 131/83 10/04/20 20:15 Pulse Ox 97 10/04/20 20:15 Data NPU : 09/30/20 03:11 09/30/20 03:11 A&P Additional A&P Information (1) History of bipolar disorder: (2) Acute alteration in mental status: (3) Bipolar disorder: (4) Anxiety and depression: (5) Multiple sclerosis: (6) Grand mal seizure: (7) Benzodiazepine withdrawal with perceptual disturbance: (8) catatonia Additional A&P Information This is a 40-year-old white female with a history of mental health treatment but reportedly no inpatient services at least not in the past 16 years during her current marriage who presents with altered mental status with likely tracing back to a medication change 3 weeks ago with reported seizure. 1. Continue current medication. We will attempt to get some collateral information from the as to whether a mood stabilizer might be indicated. 2. Continue one to one but consider reducing the every 15 minute checks for safety. 3. Encourage individual, group and milieu therapy. 4. We'll continue to work for collateral information. Involuntary Hold Information 96 Hour Hold: 96 Hour Involuntary Admission: No Attestations NPU Medical Necessity Statement*: Inpatient hospitalization is medically necessary and the clinically appropriate intervention at this time. We will monitor medications and make changes as indicated. Likely length of stay 1-3 days. Coding Level of Care Code Acute Chief Security Officer for [facility] Nice
[2020-10-04 13:31] VITALS: BP 121/84; PULSE 79; RESP 18; TEMP 36.8; O2SAT 99
[2020-10-04 20:15] VITALS: BP 131/83; PULSE 82; RESP 16; TEMP 36.6; O2SAT 97
[2020-10-04] MEDS: acetaminophen 325 mg Tablet 650 MG PO (21:14)
[2020-10-04] MEDS: tizanidine 4 mg Tablet 6 MG PO (22:10)
[2020-10-05 05:26] VITALS: BP 88/55; PULSE 86; RESP 17; TEMP 36.8; O2SAT 97
[2020-10-05] MEDS: levETIRAcetam 500 mg Tablet 750 MG PO ×2 (09:14→21:42)
[2020-10-05] MEDS: pantoprazole DR 40 mg Tablet PO (09:14)
[2020-10-05] MEDS: CLONazepam 0.5 mg Tablet PO ×2 (09:14→17:24)
[2020-10-05] MEDS: acetaminophen 325 mg Tablet 650 MG PO ×2 (10:59→21:43)
[2020-10-05 13:38] VITALS: BP 120/83; PULSE 76; RESP 18; TEMP 36.5; O2SAT 98
--- NOTE | 2020-10-05 17:14 | PM.NPN ---
Subjective NPU Subjective: Interval history: Marya presented today with continued slow improvement. More spontaneity in speech but with continued confusion and paranoia and per her fairly distant from previous level of functioning. Ultimately explained to the concerns raised by insurance however from his historical representation she is still extremely dysfunctional. We discussed the risks, benefits and alternatives of initiating Abilify, and they understood and agreed to proceed as is documented in this note. One positive note related to insurance denial is that will be able to be home giving us some latitude in discharge that would not have normally been there. Mental Status Exam MSE Comments: This is an overweight white female with adequate grooming and eye contact in hospital scrubs. No abnormal movements improvement in her mild psychomotor retardation with less moments of seeming to go off the line and be catatonic. More cooperative with exam in no acute distress. Speech was present today with continued increasing in spontaneity in response but still limited spontaneity when not engaged first. Mood described as hopeful, affect still odd. Thought process more organized, but still having moments where she stares blankly after clear questions are asked. Thought content: Patient did not report suicidal or homicidal ideation and did not appear to have aggression towards herself or others, there were no delusions reported, but she had moments of clear paranoia and believes that people could have information that would normally not be attainable by means other than the paranormal activity, and she was not responsive to questions about auditory or visual hallucinations and she did not appear to be attending to internal stimuli. Attention and concentration were impaired, but were improving and memory was impaired but none were formally tested. She is alert but did not respond to questions of orientation. Insight and judgment are impaired, but improving impulse control is impaired. Vitals/I&O/Wt Last Vital Signs Temp 97.8 F 10/05/20 20:05 Pulse 73 10/05/20 20:05 Resp 15 10/05/20 20:05 BP 102/69 10/05/20 20:05 Pulse Ox 98 10/05/20 20:05 Data NPU : 09/30/20 03:11 09/30/20 03:11 A&P Additional A&P Information (1) History of bipolar disorder: (2) Acute alteration in mental status: (3) Bipolar disorder: (4) Anxiety and depression: (5) Multiple sclerosis: (6) Grand mal seizure: (7) Benzodiazepine withdrawal with perceptual disturbance: (8) catatonia Additional A&P Information This is a 40-year-old white female with a history of mental health treatment but reportedly no inpatient services at least not in the past 16 years during her current marriage who presents with altered mental status with likely tracing back to a medication change 3 weeks ago with reported seizure. 1. Continue current medication. Except we will initiate Abilify. 2. Continue one to one but consider reducing the every 15 minute checks for safety. 3. Encourage individual, group and milieu therapy. Involuntary Hold Information 96 Hour Hold: 96 Hour Involuntary Admission: No Attestations NPU Medical Necessity Statement*: Inpatient hospitalization is medically necessary and the clinically appropriate intervention at this time. We will monitor medications and make changes as indicated. Likely length of stay 1-3 days. Coding Level of Care Code Acute Front Office Coordinator for Delano Nice
[2020-10-05] MEDS: ARIPiprazole 10 mg Tablet 5 MG PO (18:51)
[2020-10-05 20:05] VITALS: BP 102/69; PULSE 73; RESP 15; TEMP 36.6; O2SAT 98
[2020-10-05] MEDS: hyDROXYzine 25 mg Capsule 50 MG PO (21:42)
[2020-10-05] MEDS: trazodone 50 mg Tablet PO (21:42)
[2020-10-06 06:00] VITALS: BP 114/74; PULSE 87; RESP 18; TEMP 36.7; O2SAT 99
[2020-10-06] MEDS: levETIRAcetam 500 mg Tablet 750 MG PO ×2 (07:51→20:49)
[2020-10-06] MEDS: pantoprazole DR 40 mg Tablet PO (07:52)
[2020-10-06] MEDS: CLONazepam 0.5 mg Tablet PO ×2 (07:52→17:05)
[2020-10-06] MEDS: ARIPiprazole 10 mg Tablet PO (07:52)
--- NOTE | 2020-10-06 11:48 | P.PN_ITS ---
Subjective NPU Subjective: Interval history: Tabby presents today continuing to make progress and slow improvements. She is very excited about her visiting today and hopefully she will continue to make progress. She for the first time was asking questions about the time frame of her being here, diagnoses and what had happened. We discussed the possibility of discharge in the next 48 hours. She reports that she is tolerating the Abilify without issues. Mental Status Exam MSE Comments: This is an overweight white female with adequate grooming and eye contact in hospital scrubs. No abnormal movements with resolving psychomotor retardation with less moments of seeming to go off the line and be catatonic. More cooperative with exam in no acute distress. Speech was a lot more spontaneous today with her even being the initiator of lines of conversation. Mood described as better, affect still odd. Thought process more organized, with less moments where she stares blankly. Thought content: Patient denied suicidal or homicidal ideation, there were no delusions reported, but she had less moments of paranoia, she denied auditory or visual hallucinations. Attention and concentration were improving, and memory was impaired but none were formally tested. She is alert and oriented x3. Insight and judgment are impaired, but improving, impulse control is impaired. Vitals/I&O/Wt Last Vital Signs Temp 98.0 F 10/06/20 06:00 Pulse 87 10/06/20 06:00 Resp 18 10/06/20 06:00 BP 114/74 10/06/20 06:00 Pulse Ox 99 10/06/20 06:00 Data NPU : 09/30/20 03:11 09/30/20 03:11 A&P Additional A&P Information (1) History of bipolar disorder: (2) Acute alteration in mental status: (3) Bipolar disorder: (4) Anxiety and depression: (5) Multiple sclerosis: (6) Grand mal seizure: (7) Benzodiazepine withdrawal with perceptual disturbance: (8) catatonia This is a 40-year-old white female with a history of mental health treatment but reportedly no inpatient services at least not in the past 16 years during her cu rrent marriage who presents with altered mental status with likely tracing back to a medication change 3 weeks ago with reported seizure. 1. Continue current medication. 2. Continue one to one but consider reducing the every 15 minute checks for safety. 3. Encourage individual, group and milieu therapy. Involuntary Hold Information 96 Hour Hold: 96 Hour Involuntary Admission: No Attestations NPU Medical Necessity Statement*: Inpatient hospitalization is medically necessary and the clinically appropriate intervention at this time. We will monitor medications and make changes as indicated. Likely length of stay 1-3 days. Coding Level of Care Code Acute Entertainer & Comic for Delano Nice
[2020-10-06 13:39] VITALS: BP 107/74; PULSE 80; RESP 18; TEMP 36.6; O2SAT 96
[2020-10-06] MEDS: acetaminophen 325 mg Tablet 650 MG PO (17:08)
[2020-10-06 20:11] VITALS: BP 102/67; PULSE 75; RESP 18; TEMP 36.7; O2SAT 97
[2020-10-06] MEDS: trazodone 50 mg Tablet PO (20:49)
[2020-10-07 06:00] VITALS: BP 115/78; PULSE 108; RESP 17; TEMP 37; O2SAT 93
[2020-10-07] MEDS: ARIPiprazole 10 mg Tablet PO (08:51)
[2020-10-07] MEDS: levETIRAcetam 500 mg Tablet 750 MG PO (08:51)
[2020-10-07] MEDS: CLONazepam 0.5 mg Tablet PO ×2 (08:51→17:16)
[2020-10-07] MEDS: pantoprazole DR 40 mg Tablet PO (08:52)
[2020-10-07 13:53] VITALS: BP 100/64; PULSE 74; RESP 18; TEMP 37
--- NOTE | 2020-10-07 17:58 | P.DS_ITS ---
Diagnoses at Discharge Discharge Diagnosis (1) AMS (altered mental status): Status: Acute (2) Chronic pain: Status: Acute (3) Anxiety and depression: Status: Acute (4) Multiple sclerosis: Status: Acute (5) Bipolar disorder: Status: Acute (6) Grand mal seizure: Status: Acute Reason for Visit Reason for Visit: seizure 2days ago/insomnia,ams/nausea Brief History: History of Present Illness Tabby Gibbs is a 40 year old female who presented to the emergency department with the following report: Chief Complaint: Altered Mental Status Stated Complaint: seizure 2days ago/insomnia,ams/nausea Time Seen by Provider: 09/28/20 16:18 History of Present Illness: HPI narrative: 40-year-old female brought to the emergency room by private vehicle. Recently was having a seizure began about 1 year ago had a seizure of couple days ago and increased her Lyrica. Normally patient is alert and oriented x4 she has a history of MS. She is confused at this point she believes is February 2024. MD complaint: altered mental status and confusion Onset (ago): hour(s) Timing confirmed by: spouse Severity: severe Consistency of symptoms: Getting Worse Context: other (History of MS) Associated symptoms: Reports delusions; Deny auditory hallucinations, visual hallucinations, depression, homicidal ideation, racing thoughts or suicidal ideation. She was admitted to the medical unit for definitive treatment of those issues. Some confusion/altered mental status and odd behavior led to a psychiatric consult being initiated. Patient presents today reporting that he first had a seizure within the last year or so. No more seizure behavior noted and then she endorses that just prior to hospitalization there were 2 seizures noted with lead to coming to the emergency department for evaluation of her issues. Much of her history was related by her of about 16 years as she often turned to him almost as if being confused as to why the questions were being asked of her. She has had some anxiety and depression in her life but they deny psychiatric inpatient services or even significant mental health follow-up. It appears the most significant information that they relate was that about 3 weeks ago when she was reportedly taking Xanax, dose unknown and that was discontinued without any known taper in deference to the Lyrica. They deny any other significant contributory information. No history of trauma, emotional, physical or sexual abuse no real concerns about recent stressors or illness. They endorse that her life has been stable otherwise. They deny any active overuse of the Xanax and do report long-term use of benzodiazepines prior. Psychiatric history: As above. She is reportedly on disability in part due to mental illness but they do not report significant aftercare. Substance abuse history: She endorses daily cigarette use, denies daily alcohol use and denies marijuana or any illicit drug use. She is never been to rehab and never had a DUI. Family history: They deny any significant addiction history in the family there may have been some mental health issues on one side of the family and he denies any suicide attempts or completions in the family and she is never had a suicide attempt. Developmental history: He denies any contributory developmental issues reporting that she did not have problems with or delivery, learning to walk or talk or meeting her developmental milestones on time and they deny need for speech therapy, learning support, emotional support or special education classes. Psychosocial history: Does really have siblings including many half siblings. Her childhood was reportedly unremarkable and without trauma. Her schooling was unremarkable. They have been for 16 years and have no children. She is never been in the . They have stable housing. Legal history: Denied. Medical history: No significant issues outside of the seizures. Hospital Course Hospital Course Tabby presented to the emergency department with reports of seizure activity and altered mental status. She was admitted to the MedSurg unit for definitive treatment of those issues. While on the MedSurg unit a psychiatric consult was requested and performed. Once she was medically stable she continued to have significant alteration in her mental status, confusion and inability to function and so she was transferred to the neuropsychiatric unit for definitive treatment of those issues. It was noted that she had a discontin uation of benzodiazepines without a taper about 3 weeks prior to hospitalization and so a low-dose, 0.5 mg p.o. twice daily of Klonopin was started. Additionally Abilify for mood stabilization was initiated. She slowly acclimated to the individual, group and milieu therapies and was allowed to discharge in part because her will be home 15/06 as he continued to have some limitations, however there are also some concerns for possible cluster B pathology. During the hospitalization she had routine laboratory studies which were within normal limits except for few outliers. Additionally she had a general medical evaluation which was also within normal limits and revealed no new acute processes. Discharge summary: At the time of discharge she was absent lethality and her altered mental status/thought disorder were improving. Her mood and anxiety were well managed and she and her endorsed a plan to follow the treatment team's recommendations for outpatient services. She was evaluated and deemed to be absent credible lethality and had achieved significant benefit from an inpatient hospitalization, so she was discharged. Involuntary Hold Information 96 Hour Hold: 96 Hour Involuntary Admission: No Mental Status Exam MSE Comments: This is an overweight white female with adequate grooming and eye contact in hospital scrubs. No abnormal movements with resolving psychomotor retardation with less moments of seeming to go off line and be confused/catatonic. More cooperative with exam in no acute distress. Speech was a lot more spontaneous with more normal rate and volume. Mood described happy, affect still odd. Thought process more organized. Thought content: Patient denied suicidal or homicidal ideation, there were no delusions reported, but she had less moments of paranoia, she denied auditory or visual hallucinations. Attention and concentration were improving, and memory was impaired but none were formally tested. She is alert and oriented x3. Insight and judgment are limited, but improving, impulse control is impaired. Discharge Data Data Completed and Pending: Completed Studies During Hospitalization Category Date Time Status CT head wo con* [id number] Stat Cat Scan 09/28/20 14:14 Completed XR chest 1V leonard ble [id number] Stat Exams 09/28/20 20:28 Completed Vitals: Last Vital Signs Temp 98.6 F 10/07/20 13:53 Pulse 74 10/07/20 13:53 Resp 18 10/07/20 13:53 BP 100/64 10/07/20 13:53 Pulse Ox 93 10/07/20 06:00 Discharge Plan Discharge Patient Disposition: Home Condition: Stable Prescriptions: New levetiracetam 500 mg Tablet 750 mg PO Q12H 30 Days Qty: 90 RF: 0 clonazepam 0.5 mg Tablet 0.5 mg PO BID 30 Days Qty: 60 RF: 1 aripiprazole 10 mg Tablet 10 mg PO DAILY 30 Days Qty: 30 RF: 1 Continued tizanidine 4 mg tablet 6 mg PO BID RF: 0 tolterodine 4 mg capsule,extended release 24hr 4 mg PO DAILY RF: 0 pregabalin 50 mg capsule 50 mg PO BID RF: 0 Tecfidera 240 mg capsule,delayed release(DR/EC) 240 mg PO BID RF: 0 fluoxetine 40 mg capsule 40 mg PO DAILY RF: 0 Discontinued prochlorperazine maleate 5 mg tablet 5 mg PO Q6H PRN (Reason: UNKNOWN) RF: 0 escitalopram oxalate 20 mg tablet 20 mg PO DAILY RF: 0 Discharge Orders: Discharge Order (Routine); Ordered 10/07/20 Ordered By: Yordan Renteria Referrals: [facility] [Outside] - 1-3 days (call or stop by [facility] if you are interested in outpatient mental health services. ) Inez Trivedi DO [Primary Care Provider] - 4-7 days () Discharge Diet: Regular Discharge Activity: Resume usual activity Discharge Attestations NPU Time Spent in Discharge Care*: less than 30 min Specific Discharge Activities: Specific discharge activities: educating patient, educating and/or supporting family/caregiver, discussing with case specialist/social workers/dc planners, documenting/other paperwork and evaluating patient/reviewing data Coding Level of Care Code Acute Seamer Operator for [facility] Fwd Diagnoses AMS (altered mental status) R41.82 Chronic pain G89.29 Anxiety and depression F41.9; F32.9 Multiple sclerosis G35 Bipolar disorder F31.9 Grand mal seizure G40.409
[2020-10-07 18:04] VITALS: BP 100/64; PULSE 74; RESP 18; TEMP 37
== END 2020-10-07 18:21 | disposition home or self-care (01) | DRG 948 ==
LOC: ER 22:03 → MEDSURG 23:23 → NP 09-30 12:53
PROVIDERS: Family Medicine; Admitting Provider Family Medicine; Emergency Provider Emergency Medicine; PCP Family Medicine; Visit Provider Psychiatry & Neurology Psychiatry
DX: R41.82 Altered mental status, unspecified (principal); F41.8 Other specified anxiety disorders; G35 Multiple sclerosis; R32 Unspecified urinary incontinence; G40.409 Other generalized epilepsy and epileptic syndromes, not intractable, without status epilepticus; G89.29 Other chronic pain; F17.210 Nicotine dependence, cigarettes, uncomplicated; Z87.440 Personal history of urinary (tract) infections
CPT/HCPCS: 12345; 36415; 70450; 71045; 80053; 80306; 80307; 81001; 82140; 83605; 83735; 84100; 84145; 84484; 84703; 85025; 86140; 87040; 87086; 93005; 94664; 96372; 96375; 99284; G0378; J0696; J2060; J2405; J3490; J7799

== ENCOUNTER → 2021-01-10 10:13 | Outpatient (BNVA) | payer MEDICARE, MEDICAID, SELFPAY | PROVIDERS: PCP Family Medicine; Referring Provider Registered Nurse; Visit Provider Urology | DX: N39.490 Overflow incontinence (principal); R33.9 Retention of urine, unspecified; G35 Multiple sclerosis; F41.9 Anxiety disorder, unspecified; F32.9 Major depressive disorder, single episode, unspecified; R35.0 Frequency of micturition; R39.15 Urgency of urination; N31.9 Neuromuscular dysfunction of bladder, unspecified | CPT/HCPCS: 81003 ==

== ENCOUNTER 2021-01-31 09:47 | Outpatient (CLI) | payer MEDICARE, MEDICAID, SELFPAY ==
--- NOTE | 2021-01-31 09:30 | US_ITS ---
WS: [id number] ULTRASOUND RENAL TECHNIQUE: Ultrasound examination of both kidneys. CLINICAL INFORMATION: NEUROGENIC BLADDER COMPARISON: None. FINDINGS: RIGHT: Right kidney is normal in size and appearance. Echogenicity: Normal. Cortical thickness: 1.4 cm; Normal. Hydronephrosis: None. Perinephric fluid: None. Right kidney measures: 12.4 cm x 4.1 cm x 4.6 cm. LEFT: Left kidney is normal in size and appearance. Echogenicity: Normal. Cortical thickness: 1.2 cm; Normal. Hydronephrosis: None. Perinephric fluid: None. Left kidney measures: 10.6 cm x 4.4 cm x 4.5 cm. Normal visualized aorta. US/US renal BI* [id number] IMPRESSION: Normal renal ultrasound
== END 2021-01-31 09:48 | disposition home or self-care (01) ==
PROVIDERS: PCP Family Medicine; Visit Provider Urology
DX: N31.9 Neuromuscular dysfunction of bladder, unspecified (principal)
CPT/HCPCS: 76770

== ENCOUNTER 2022-05-26 10:23 | Emergency (ER) | payer MEDICARE, MEDICAID, SELFPAY ==
[2022-05-26 10:25] VITALS: BP 120/51; PULSE 90; RESP 18; TEMP 36.6; O2SAT 94; BMI 34.0
[2022-05-26] MEDS: ketorolac 30 mg/mL INJ IVP (10:47)
[2022-05-26] MEDS: promethazine 25 mg/mL SDV 1 mL IM (10:48)
--- NOTE | 2022-05-26 10:48 | W.ED.HA ---
HPI - Headache General: Chief Complaint: Headache Stated Complaint: HEAD PAIN Time Seen by Provider: 05/26/22 10:34 Source: patient Mode of arrival: EMS Limitations: no limitations History of Present Illness: 41-year-old female presents emergency room via EMS complaint of headache. Began last evening was worse when she woke up this morning she was trying to transfer to a wheelchair evidently and fell she did strike her head she denies loss consciousness. Patient has a history of chronic relapsing remitting multiple sclerosis. She is not currently receiving any treatment she tells me she has been followed by a neurologist but cannot recall the name. There is no record of a neurology consult in our current EMR or in the previous EMR system. MD elicited complaint: headache Pertinent past history: migraines Onset (ago): day(s) Onset description: suddenly Location: right and frontal Quality & Timing: throbbing Exacerbating factors: light and noise Associated symptoms: Deny chest pain, fever(s), malaise, nausea, rash or vomiting Review of Systems Const: Denies: fever(s), chills, body aches, change in appetite, fatigue or malaise ENMT: Denies: throat pain, ear or mastoid pain, nasal discharge or nasal congestion Card: Denies: chest pain, edema, dyspnea on exertion or orthopnea Resp: Denies: dyspnea, productive cough or non-productive cough GI: Denies: abdominal pain, nausea, vomiting, hematemesis, coffee ground emesis, diarrhea, constipation, bloating, hematochezia or melena : Denies: flank pain, difficulty voiding, dysuria, urinary frequency or urinary urgency Skin/Breast: Denies: rash or pruritus PFSH ED PFSH: Medical History Anxiety and depression Bipolar disorder Chronic pain Incomplete bladder emptying Multiple sclerosis Neurogenic bladder Urinary frequency Urinary incontinence Urinary urgency Surgical History History of cholecystectomy History of hysterectomy Family History Father Multiple sclerosis Other CAD (coronary artery disease) Diabetes Social History Smoking and tobacco status: current every day smoker Alcohol intake: never Marital status: Current occupational status: disabled History of recent travel: No Physical Exam Const: COMMON NORMALS: no acute distress GENERAL APPEARANCE: cooperative and comfortable ORIENTATION/CONSCIOUSNESS: Yes awake, Yes oriented to person, Yes oriented to place and Yes oriented to time HENMT: COMMON NORMALS: normocephalic, atraumatic, hearing grossly normal bilaterally, external ears normal, EAC's normal, TM's normal bilaterally, Normal nasal mucous membranes and turbinates present, moist oral mucous membranes and oropharynx normal HEAD & SCALP: normocephalic and atraumatic NOSE: Normal nasal mucous membranes and turbinates present EXTERNAL EAR: Yes external ears normal EXTERNAL AUDITORY CANAL: EAC's normal TYMPANIC MEMBRANE: TM's normal bilaterally Neck/C-Spine: COMMON NORMALS: no JVD Resp: COMMON NORMALS: normal respiratory effort, No retractions, No use of accessory muscles and clear to auscultation bilaterally AUSCULTATION: clear to auscultation bilaterally Cardio: COMMON NORMALS: no JVD, regular rate, regular rhythm and No murmurs present (Cardio) RATE: regular rate RHYTHM: regular rhythm GI: COMMON NORMALS: Soft to palpation and No hepatosplenomegaly present AUSCULTATION: Yes normoactive bowel sounds PALPATION: Yes Soft to palpation, No Tenderness to palpation present (GI), No Guarding due to palpation present (GI) and Yes No hepatosplenomegaly present Extremity: COMMON NORMALS: normal to inspection, capillary refill normal, no clubbing, cyanosis or edema, no calf tenderness and no pedal edema Neuro: SENSORIUM/ORIENTATION: Yes oriented to person, Yes oriented to place and Yes oriented to time Skin: COMMON NORMALS: no rashes or lesions noted GENERAL SKIN EXAM: no rashes or lesions noted Course Vital Signs: Vital signs: Vital Signs Temperature 97.9 F 05/26/22 10:25 Pulse Rate 90 05/26/22 10:25 Respiratory Rate 18 05/26/22 10:25 Blood Pressure 120/51 05/26/22 10:25 Pulse Oximetry 94 05/26/22 10:25 [facility] - Headache Medical Decision Making Patient's headache is improved. She has an appointment coming up with neurologist she is still actually getting treatment she gets a once every 6-month treatment. She is starting to have more urinary retention but she is equipped at home to self cath which she is going to begin doing. Her weakness in her legs has not changed significantly she does not really want to do anything further with this she was mostly concerned with a headache would like to go home. Do think she may need more aggressive care for her MS. Encouraged to keep her appointment with neurology return if has further problems. Medical Records I reviewed the patient's medical records. Lab Data I reviewed the patient's lab results. : 05/26/22 10:45 05/26/22 10:45 Laboratory Results WBC 14.1 10^3/uL (4.0-10.0) H 05/26/22 10:45 RBC 4.95 10^6/uL (4.1-5.3) 05/26/22 10:45 Hgb 14.0 g/dL (11.5-15.3) 05/26/22 10:45 Hct 41.9 % (37.0-47.0) 05/26/22 10:45 MCV 84.6 fl (81-99) 05/26/22 10:45 MCH 28.3 pg (28.0-34.0) 05/26/22 10:45 MCHC 33.4 g/dL (30.0-36.0) 05/26/22 10:45 RDW 13.4 % (12.1-15.1) 05/26/22 10:45 Plt Count 260 10^3/cmm (130-400) 05/26/22 10:45 MPV 10.9 fL (7.4-10.4) H 05/26/22 10:45 Neut % (Auto) 91.2 % 05/26/22 10:45 Lymph % (Auto) 4.3 % 05/26/22 10:45 [place] % (Auto) 3.6 % 05/26/22 10:45 Eos % (Auto) 0.0 % 05/26/22 10:45 Baso % (Auto) 0.3 % 05/26/22 10:45 Neut # (Auto) 12.84 10^3/uL (1.8-7.7) H 05/26/22 10:45 Lymph # (Auto) 0.6 10^3/uL (0.8-4.8) L 05/26/22 10:45 [place] # (Auto) 0.5 10^3/uL (0.2-0.9) 05/26/22 10:45 Eos # (Auto) 0.0 10^3/uL (0.0-0.8) 05/26/22 10:45 Baso # (Auto) 0.0 10^3/uL (0.0-0.1) 05/26/22 10:45 Nucleated RBC % (auto) 0 % 05/26/22 10:45 Nucleated RBCs # 0.0 /100WBC 05/26/22 10:45 Sodium 132 mmol/L (136-145) L 05/26/22 10:45 Potassium 3.8 mmol/L (3.5-5.1) 05/26/22 10:45 Chloride 99 mmol/L (98-107) 05/26/22 10:45 Carbon Dioxide 21 mmol/L (22-29) L 05/26/22 10:45 Anion Gap 15.8 (5-19) 05/26/22 10:45 BUN 9 mg/dL (6-20) 05/26/22 10:45 Creatinine 0.6 mg/dL (0.5-0.9) 05/26/22 10:45 GFR Calculation 110.2 mL/min (90-130) 05/26/22 10:45 Glucose 105 mg/dL (65-115) 05/26/22 10:45 Calculated Osmolality 273 mOsm/kg (285-295) L 05/26/22 10:45 Calcium 8.9 mg/dL (8.5-10.5) 05/26/22 10:45 Total Bilirubin 0.4 mg/dL (0.15-1.2) 05/26/22 10:45 AST 17 U/L (0-32) 05/26/22 10:45 ALT 21 U/L (0-33) 05/26/22 10:45 Alkaline Phosphatase 87 IU/L (35-105) 05/26/22 10:45 Total Protein 6.9 g/dL (6.6-8.7) 05/26/22 10:45 Albumin 3.9 g/dL (3.5-5.2) 05/26/22 10:45 Globulin 3.0 g/dL (1.3-4.6) 05/26/22 10:45 Discharge Plan Discharge Patient Disposition: Home Clinical Impression: Headache, Multiple sclerosis Condition: Stable Prescriptions: New promethazine 25 mg tablet 25 mg PO Q6H PRN (Reason: headache) Qty: 20 0RF No Action levetiracetam 750 mg tablet 750 mg PO BID 0RF tizanidine 4 mg tablet 6 mg PO BID 0RF dimethyl fumarate [Tecfidera] 240 mg capsule,delayed release(DR/EC) 240 mg PO BID 0RF fluoxetine 40 mg capsule 40 mg PO DAILY 0RF clonazepam 0.5 mg Tablet 0.5 mg PO BID 30 Days Qty: 60 1RF aripiprazole 10 mg Tablet 10 mg PO DAILY 30 Days Qty: 30 1RF furosemide 40 mg Tablet 40 mg PO DAILY PRN (Reason: Edema) 0RF methocarbamol 500 mg Tablet 500 mg PO TID 0RF gabapentin 300 mg Capsule 300 mg PO TID 0RF epinephrine 0.3 mg/0.3 mL Syringe 0.3 mg IM ONCE PRN (Reason: Allergic Reaction) 0RF Rx Instructions: for 2 doses potassium chloride 20 mEq Tablet Extended Release 20 meq PO DAILY 0RF ocrelizumab 30 mg/mL Solution See Rx Instructions .ROUTE .COMPLEX 0RF Rx Instructions: intravenously TWICE A YEAR erenumab-aooe 70 mg/mL Auto-Injector 70 mg SUBCUT Q30D 0RF ubrogepant 50 mg Tablet 50 mg PO EVERY OTHER DAY 0RF Myrbetriq 25 mg tablet extended release 24 hr 25 mg PO DAILY 0RF Discharge Orders: Discharge ED (Routine); Ordered 05/26/22 Ordered By: Evgeny Stroud Referrals: Inez Trivedi, [Primary Care Provider] - Discharge Diet: Usual diet Discharge Activity: Increase activity as tolerated Patient Instructions: Opioid Safety Activity Restrictions/Additional Instructions: Recommend he follow-up with Dr. Trivedi and your neurologist and urologist as scheduled. If you get recurrent headaches you can use the promethazine conjunction with Tylenol or ibuprofen. Coding Level of Care Code ED Enrollment Coordinator for [facility]
[2022-05-26 10:52] LABS: Basophils % 0.3 %; Hematocrit 41.9 % (37.0-47.0); Lymphocytes # 0.6 10^3/uL (0.8-4.8); Lymphocytes % 4.3 %; Mean Corpuscular HGB Conc 33.4 g/dL (30.0-36.0); Mean Corpuscular Hemoglobin 28.3 pg (28.0-34.0); Mean Corpuscular Volume 84.6 fl (81-99); Mean Platelet Volume 10.9 fL (7.4-10.4); Monocytes # 0.5 10^3/uL (0.2-0.9); Monocytes % 3.6 %; Neutrophils # 12.84 10^3/uL (1.8-7.7); Neutrophils % 91.2 %; Nucleated Red Blood Cells % 0 %; Platelet Count 260 10^3/cmm (130-400); Red Blood Count 4.95 10^6/uL (4.1-5.3); Red Cell Distribution Width 13.4 % (12.1-15.1); White Blood Count 14.1 10^3/uL (4.0-10.0)
[2022-05-26 11:06] LABS: Alanine Aminotransferase 21 U/L (0-33); Albumin Level 3.9 g/dL (3.5-5.2); Alkaline Phosphatase 87 IU/L (35-105); Anion Gap 15.8 (5-19); Aspartate Amino Transferase 17 U/L (0-32); Blood Urea Nitrogen 9 mg/dL (6-20); Calcium 8.9 mg/dL (8.5-10.5); Carbon Dioxide 21 mmol/L (22-29); Chloride 99 mmol/L (98-107); Glomerular Filtration Rate 110.2 mL/min (90-130); Glucose 105 mg/dL (65-115); Osmolality Calculated 273 mOsm/kg (285-295); Potassium 3.8 mmol/L (3.5-5.1); Sodium 132 mmol/L (136-145); Total Bilirubin 0.4 mg/dL (0.15-1.2); Total Protein 6.9 g/dL (6.6-8.7)
== END 2022-05-26 12:38 | disposition home or self-care (01) ==
PROVIDERS: Emergency Provider Family Medicine; PCP Family Medicine
DX: R51.9 Headache, unspecified (principal); G35 Multiple sclerosis; F17.210 Nicotine dependence, cigarettes, uncomplicated
CPT/HCPCS: 80053; 85025; 96372; 96374; 99284; J1885; J2550

== ENCOUNTER → 2022-06-11 12:34 | Outpatient (BNVA) | payer MEDICARE, MEDICAID, SELFPAY | PROVIDERS: PCP Family Medicine; Visit Provider Nurse Practitioner Family | DX: R39.15 Urgency of urination (principal); N31.9 Neuromuscular dysfunction of bladder, unspecified; G35 Multiple sclerosis | CPT/HCPCS: 99213 ==

== ENCOUNTER → 2022-08-15 12:00 | Outpatient (BNVA) | payer MEDICARE, MEDICAID, SELFPAY | PROVIDERS: PCP Family Medicine; Referring Provider Family Medicine; Visit Provider Specialist | DX: G35 Multiple sclerosis (principal); R39.15 Urgency of urination; F41.9 Anxiety disorder, unspecified; F31.9 Bipolar disorder, unspecified; G40.409 Other generalized epilepsy and epileptic syndromes, not intractable, without status epilepticus; F03.90 Unspecified dementia, unspecified severity, without behavioral disturbance, psychotic disturbance, mood disturbance, and anxiety; R26.2 Difficulty in walking, not elsewhere classified | CPT/HCPCS: 82044; 99205 ==

== ENCOUNTER 2022-08-22 12:50 | Outpatient (RCR) | payer MEDICARE, MEDICAID, SELFPAY ==
[2022-08-18 09:28] VITALS: BP 114/65; PULSE 58; RESP 18; TEMP 35.8; O2SAT 96
[2022-08-19 12:45] VITALS: BP 126/68; PULSE 52; RESP 18; TEMP 36.3; O2SAT 95
[2022-08-20 12:50] VITALS: BP 100/65; PULSE 53; RESP 18; TEMP 36.3; O2SAT 97
[2022-08-21 07:59] VITALS: BP 136/78; PULSE 52; RESP 18; TEMP 36.2; O2SAT 96
[2022-08-22 12:58] VITALS: BP 130/73; PULSE 52; RESP 18; TEMP 36.5; O2SAT 96
== END 2022-08-22 23:59 | disposition home or self-care (01) ==
LOC: GILAB 12:50
PROVIDERS: PCP Family Medicine; Visit Provider Specialist
DX: G35 Multiple sclerosis (principal)
CPT/HCPCS: 96365; J2930; J7050

== ENCOUNTER 2022-09-22 12:49 | Outpatient (CLI) | payer MEDICARE, MEDICAID, SELFPAY ==
--- NOTE | 2022-09-22 13:00 | MR_ITS ---
WS: [id number] MRI BRAIN WITHOUT CONTRAST HISTORY: G35 - Multiple sclerosis COMPARISON: 04/27/2017 TECHNIQUE: Diffusion imaging, multiplanar T1, T2 and FLAIR imaging obtained. No evidence for acute infarct or hemorrhage. Extensive T2 and FLAIR signal hyperintensities throughout the white matter in a distribution consiste nt with patient's history of multiple sclerosis. There is extensive, confluent periventricular and pe ricallosal signal abnormalities. Majority of these are in a perpendicular distribution to the corpus callosum. Additional scattered cortical and subcortical based lesions. White matter lesions continue into the temporal lobes bilaterally. More subtle lesions bilaterally within the cerebellum. As compar ed to the prior examination from 2016 no obvious progression of demyelination is apparent. Mild atrophy. No inferior displacement of cerebellar tonsils. The sella turcica and pituitary gland are unremarkabl e. Dural venous sinuses and [place] of [place] demonstrate no abnormality on this unenhanced studies. Paranasal sinuses: Mucous retention cyst in the LEFT maxillary sinus. No air-fluid levels. Mastoid air cells: Mastoid air cells are clear. Calvarium and scalp: Intact. MR/MR head wo con* [id number] IMPRESSION: 1. No acute infarct or hemorrhage. 2. Severe demyelinating lesions as described above. Extensive confluent demyel inating lesions consistent with multiple sclerosis. No obvious progression sinc e 04/27/2017. 3. Mild cerebral atrophy.
--- NOTE | 2022-09-22 13:45 | MR_ITS ---
WS: [id number] MRI CERVICAL SPINE with and without contrast. HISTORY: G35 - Multiple sclerosis COMPARISON: None available. Technique: Multiplanar, multisequence pre and postcontrast imaging of the cervical spine. MultiHance 20 mL IV. Mild straightening of the normal cervical lordosis. Mild curvature. Mild disc osteophyte at C5-6 encr oaching the ventral thecal sac. No fractures or marrow edema. Seen best on the STIR sequence there is diffuse abnormal T2 and STIR signal throughout the cervical c ord beginning in the brainstem and extending into the upper thoracic spine. Multifocal areas of demye linating plaques are near contiguous. No cord atrophy or enlargement. Postcontrast images is limited by motion artifact. There is breathing and swallowing artifact but no definite areas of enhancement a re identified. C2-C3: Normal. C3-C4: Mild osteophytic ridging without stenosis stenosis. C4-C5: Mild osteophytic ridging, slightly greater to the RIGHT. No high-grade stenosis. C5-C6: Diffuse disc bulging and osteophytic ridging. Mild encroachment upon the ventral thecal sac. M ild central and foraminal narrowing. There is effacement of ventral CSF but no displacement of the co rd. C6-C7: Diffuse annular disc bulging and osteophytosis. No stenosis. C7-T1: Normal. Paraspinal soft tissue are normal. MR/MR cervical spine wo/w [id number] IMPRESSION: 1. Extensive, nonenhancing demyelinating lesions throughout the cervical cord including the brainstem. None of these lesions enhance. Near contiguous white m atter lesions throughout the cervical cord. 2. Mild central stenosis at C5-6 and mild foraminal stenosis due to disc and o steophyte disease.
--- NOTE | 2022-09-22 14:30 | MR_ITS ---
WS: [id number] MRI THORACIC SPINE with and without contrast. HISTORY: G35 - Multiple sclerosis COMPARISON: None available. TECHNIQUE: Multiplanar sequences are performed in sagittal and axial planes. MultiHance foraminal are as IV. Mild curvature of thoracic spine. Posterior thoracic alignment is normal. There is a small amount of marrow edema in the T12 vertebral body which may be a hemangioma. No cord compression. Conus tapers n ormally ends at the T12-L1 level. Numerous T2 and FLAIR signal hyperintensities are noted within the cord. Multifocal demyelinating júnior ques are noted beginning at T1 scattered throughout the entire thoracic cord. Plaques extend over a l ength of 10 mm but there are multifocal. None of these demyelinating lesions enhance. No disc protrusions or stenosis. MR/MR thoracic spine wo/w [id number] IMPRESSION: 1. Multifocal, noncontiguous but extensive myelinating plaques throughout the thoracic cord with no enhancement. No prior MRI of thoracic spine to evaluate f or progression. 2. No cord atrophy or enlargement.
[2022-09-22] MEDS: gadobenate dimeglumine 20 mL vial IV (15:04)
== END 2022-09-22 12:50 | disposition home or self-care (01) ==
LOC: RAD 12:49
PROVIDERS: PCP Family Medicine; Visit Provider Specialist
DX: G35 Multiple sclerosis (principal); G31.9 Degenerative disease of nervous system, unspecified
CPT/HCPCS: 70551; 72156; 72157; 82044

== ENCOUNTER → 2022-12-02 10:44 | Outpatient (BNVA) | payer MEDICARE, MEDICAID, SELFPAY | PROVIDERS: PCP Family Medicine; Visit Provider Specialist | DX: G35 Multiple sclerosis (principal); R53.81 Other malaise; R26.2 Difficulty in walking, not elsewhere classified; Z99.3 Dependence on wheelchair | CPT/HCPCS: 99214 ==

== ENCOUNTER → 2023-06-04 13:42 | Outpatient (BNVA) | payer MEDICARE, MEDICAID, SELFPAY | PROVIDERS: PCP Family Medicine; Visit Provider Surgery | DX: G35 Multiple sclerosis (principal) | CPT/HCPCS: 99203 ==

== ENCOUNTER 2023-06-12 09:51 | Day surgery (SDC) | payer MEDICARE, MEDICAID, SELFPAY ==
[2023-06-11 11:25] VITALS: BMI 36.9
[2023-06-12] VITALS (12 sets, daily range): BP systolic 127–160; BP diastolic 84–104; PULSE 74–123; RESP 8–18; TEMP 36.3–36.9; O2SAT 93–99
[2023-06-12] MEDS: sodium chloride 0.9% 1,000 ML 30 ML IV (10:43)
--- NOTE | 2023-06-12 11:27 | XRR_ITS ---
PROCEDURE INFORMATION: Exam: XR Chest Exam date and time: 06/12/2023 4:09 PM Age: 42 years old Clinical indication: Device placement; Other: Postop mediport placement TECHNIQUE: Imaging protocol: Radiologic exam of the chest. Views: 1 view. COMPARISON: CR XR chest 1V portable [id number] 09/28/2020 8:48 PM FINDINGS: Tubes, catheters and devices: Left-sided mid a port tip is in the right atrium. Lungs: Reduced lung volumes.. No consolidation. Pleural spaces: Unremarkable. No pleural effusion. No pneumothorax. Heart/Mediastinum: Unremarkable. No cardiomegaly. Bones/joints: Unremarkable. XR/XR chest 1V portable [id number] IMPRESSION: 1. [place] port tip in the right atrium. 2. No acute cardiopulmonary abnormality.
--- NOTE | 2023-06-12 11:27 | SC_ITS ---
WS: [id number] C-ARM RADIOGRAPHS CHEST; 3 IMAGES HISTORY: Mediport placement COMPARISON: None available. Intraoperative imaging during Mediport placement. LEFT subclavian Mediport has been placed. SC/C-arm FL for CVA [id number] IMPRESSION: Intraoperative imaging during LEFT Mediport placement.
--- NOTE | 2023-06-12 11:51 | W.PM.OPSUD ---
Surgery/Procedure H&P Update DATE OF PROCEDURE: June 12, 2023 DATE H&P PERFORMED: 06/04/23 H&P UPDATE INFORMATION: I have reviewed H&P completed within last 30 days, I have examined patient prior to procedure and No changes to prior documentation PLANNED PROCEDURE: Operation Date: 06/12/23 11:40 Proposed Procedures p [id number] port placement G35(Not Applicable) - Sebastian Carvajal DO
[2023-06-12 11:53] LABS: Anion Gap 15.1 (5-19); Blood Urea Nitrogen 5 mg/dL (6-20); Calcium 9.1 mg/dL (8.5-10.5); Carbon Dioxide 27 mmol/L (22-29); Chloride 100 mmol/L (98-107); Glomerular Filtration Rate 135.3 mL/min (90-130); Glucose 87 mg/dL (65-115); Osmolality Calculated 283 mOsm/kg (285-295); Potassium 4.1 mmol/L (3.5-5.1); Sodium 138 mmol/L (136-145)
--- NOTE | 2023-06-12 12:10 | ANES.PREANE2 ---
Pre-Anesthetic Assessment Height/Weight: Height 1.75 m Weight 113.398 kg Temp Pulse Resp BP Pulse Ox O2 Del Method 97.4 F L 74 18 127/84 97 Room Air 06/12/23 10:11 06/12/23 10:11 06/12/23 10:11 06/12/23 10:11 06/12/23 10:11 06/12/23 10:11 Operation Date: 06/12/23 11:40 Proposed Procedures p [id number] port placement G35(Not Applicable) - Sebastian Carvajal DO Familial anesthetic complications: none Was Beta Jeri taken within 24 hours: N/A Was Clonidine taken within 24 hours: N/A Last intake: Intake Last Liquid Date 06/12/23 Last Liquid Time 07:00 Last Solid Date 06/11/23 Last Solid Time 20:00 Social No alcohol and No tobacco Exam alert, oriented x 3, clear to auscultation bilaterally and regular rate & rhythm Airway Submandibular: within normal limits Cervical ROM: within normal limits Mallampati: Class II Dentition: false (upper) Musc/skel Weakness Neuropsych Anxiety, Depression and Neuropathy MS--wheelchair bound, chronic pain Anesthetic Plan ASA status: 3 Anesthesia: MAC Medications/Allergies Home Medications Medication Instructions Recorded Confirmed Last Taken Type fluoxetine 40 mg capsule 40 mg PO DAILY 09/28/20 06/12/23 06/12/23 History levetiracetam 750 mg tablet 750 mg PO BID 01/10/21 06/12/23 06/12/23 History epinephrine 0.3 mg/0.3 mL 0.3 mg IM ONCE PRN Allergic 05/26/22 06/11/23 Unknown History injection syringe Reaction erenumab-aooe 70 mg/mL 70 mg SUBCUT Q30D 05/26/22 06/11/23 05/29/23 History subcutaneous auto-injector furosemide 40 mg tablet 40 mg PO QMWF PRN Edema 05/26/22 06/12/23 06/10/23 History gabapentin 300 mg capsule 300 mg PO TID 05/26/22 06/12/23 06/12/23 History azathioprine 50 mg tablet 50 mg PO DAILY 12/02/22 06/12/23 06/12/23 History clonazepam 0.5 mg tablet 1 mg PO BID 12/02/22 06/12/23 06/12/23 History tizanidine 4 mg tablet 4 mg PO Q8H PRN Muscle Spasm 06/04/23 06/11/23 06/10/23 History Allergies Allergy/AdvReac Type Severity Reaction Status Date / Time bee venom protein (honey bee) Allergy Unknown Verified 06/11/23 11:17 tree nut Allergy ALGY-Swell Verified 06/11/23 11:17 Lip/Tongue/Throat Current Medications Generic Name Dose Route Start Last Admin Trade Name Freq PRN Reason Stop Dose Admin Sodium Chloride 1,000 mls @ 30 mls/hr 06/12/23 10:00 06/12/23 10:43 Sodium Chloride 0.9% IV 06/13/23 09:59 30 mls/hr .Q24H LIS Administration PFSH Anesthesia Medical History Anxiety and depression Bipolar disorder Chronic pain Incomplete bladder emptying Multiple sclerosis Neurogenic bladder Urinary frequency Urinary incontinence Urinary urgency Surgical History (Updated 06/04/23 @ 14:49 by Sebastian Carvajal DO) History of hysterectomy History of tonsillectomy and adenoidectomy Family History Father Multiple sclerosis Other CAD (coronary artery disease) Diabetes Social History Smoking and tobacco status: never smoked Alcohol intake: never Substance/Drug Use: never Household members: spouse Marital status: Current occupational status: disabled Data Anesthesia 06/12/23 11:20 BMP 06/12/23 11:20 Sodium 138 Potassium 4.1 Chloride 100 Carbon Dioxide 27 BUN 5 L Creatinine 0.5 Glucose 87 Calcium 9.1 Cardiac Studies: No Data to Display
[2023-06-12] MEDS: HYDROmorphone 1 mg/mL INJ 1 mL 0.5 MG IVP (13:59)
[2023-06-12] MEDS: ceFAZolin 2,000 MG in sodium chloride 0.9% (plus) 50 ML 100 MG IV (15:10)
[2023-06-12] MEDS: lidocaine-epi 2% 20 mL INJ INJECTION (15:27)
[2023-06-12] MEDS: heparin, porcine 1,000 unit/mL INJ 10 mL 10000 UNIT INJECTION (15:40)
[2023-06-12] MEDS: sodium chloride 0.9% 100 mL Bag XX (15:40)
--- NOTE | 2023-06-12 16:16 | PM.OP ---
Operative Report Date of procedure: June 12, 2023 Pre-op diagnosis: Multiple sclerosis and desire for Mediport Post-op diagnosis: same Procedure done: Mediport insertion Implants: PowerPort Surgeon: Dr. Sebastian Carvajal, DO Anesthesia: MAC Estimated blood loss (mL): 5 Complications: None apparent Brief History: This is a very pleasant 42-year-old female with multiple sclerosis. She is to get regular injections. She desired Mediport access. The risk and benefits were explained and documented. Procedure: They put another order I will do right now things the patient was taken to the operating room and placed supine on the operating room table. All bony prominences were padded. She was given IV sedation and monitored throughout the case by the anesthesia personnel. SCDs were placed and turned on. The arms were tucked to the side. Patient received Ancef 2 g preoperatively IV. The bilateral chest wall was prepped and draped in usual sterile fashion using chlorhexidine base prep. Sterile drapes were applied. We did procedure pause prior to beginning. An 18 gauge needle was placed in the left subclavian vein. Dark, nonpulsatile blood was aspirated. A guidewire was placed through the needle centrally toward the atrial/vena caval junction. Fluoroscopy visualized good placement. The needle was removed and the guidewire was clipped to the drape with a hemostat. Further local anesthetic was infiltrated in the soft tissues of the left chest wall and a #15 blade was used to make a horizontal skin incision. A subcutaneous Mediport pocket was created using Bovie cautery, dissecting down through the skin and subcutaneous tissues. Meticulous hemostasis was achieved. The Mediport was sutured in position using 3-0 vicryl suture x2 stitches. A #15 blade was used to make a small skin latrice around the guidewire insertion area. The Mediport tubing was tunneled through the subcutaneous tissues up to the needle insertion location. A dilator with a peel-away sheath was placed over the guidewire and placed centrally. After measuring the Mediport tubing was cut to length so that the tip would end at the atrial/vena caval junction. The inner cannula and the guidewire were removed, leaving the dilator sheath in place. The Mediport was flushed. The tip of the catheter was inserted through the peel-away sheath and the peel-away sheath removed in the standard fashion. The Mediport was accessed with a straight Delaney needle and dark, nonpulsatile blood was aspirated and flushed using heparinized saline to hep-lock the Mediport. Final fluoroscopy visualization showed no kink in the catheter and the tip of the Mediport tubing near the atrial/vena caval junction. Both skin incisions were thoroughly irrigated and suctioned dry. Meticulous hemostasis noted. The dermis was approximated with 3-0 Vicryl in an interrupted fashion. Skin was closed with Dermabond. Patient was awakened from anesthesia and transferred via her cart to the recovery room in stable condition. All needle, sponge, and instrument counts were correct per the operating personnel x2 counts.
[2023-06-12] MEDS: HYDROcodone-acetaminophen 5-325 mg Tablet 1 TAB PO (16:58)
--- NOTE | 2023-06-12 17:22 | ANE.PACU2 ---
Inpatient post-anesthesia follow up: Airway intact: Yes Vital signs: Temperature 98.4 F Pulse Rate 108 Respiratory Rate 16 Blood Pressure 142/101 Pulse Oximetry 96 Oxygen Delivery Me thod Room Air Oxygen Flow Rate Fraction of Inspir ed Oxygen Hydration adequate: Yes Nausea and vomiting: No Pain level: 2 Mental status: Baseline
== END 2023-06-12 17:40 | disposition home or self-care (01) ==
PROVIDERS: Anesthesiology; PCP Family Medicine; Visit Provider Surgery
PROC: (CPT 36561; principal; 2023-06-12 11:40)
DX: G35 Multiple sclerosis (principal); F41.9 Anxiety disorder, unspecified; F32.A Depression, unspecified; G62.9 Polyneuropathy, unspecified
CPT/HCPCS: 36561; 71045; 77001; 80048; C1788; J0690; J1170; J1644; J2250; J2704; J3010; J7030

== ENCOUNTER → 2023-06-16 14:44 | Outpatient (BNVA) | payer MEDICARE, MEDICAID, SELFPAY | PROVIDERS: PCP Family Medicine; Visit Provider Surgery | DX: Z95.828 Presence of other vascular implants and grafts (principal) | CPT/HCPCS: 99024 ==

== ENCOUNTER → 2023-07-21 10:41 | Outpatient (BNVA) | payer MEDICARE, MEDICAID, SELFPAY | PROVIDERS: PCP Family Medicine; Visit Provider Surgery | DX: Z95.828 Presence of other vascular implants and grafts (principal) | CPT/HCPCS: 99213 ==

== ENCOUNTER 2023-08-04 19:27 | Emergency (ER) | payer MEDICARE, MEDICAID, SELFPAY ==
[2023-08-04 19:29] VITALS: BP 148/96; PULSE 94; RESP 16; TEMP 36.8; O2SAT 96; BMI 29.5
--- NOTE | 2023-08-04 19:40 | W.ED.FEMALGU ---
HPI - Female Genitourinary General: Chief complaint: Urogenital-Female Stated complaint: vaginal pain Time Seen by Provider: 08/04/23 19:32 History of Present Illness: 42-year-old female comes in today for complaints of vaginal burning. Patient reports symptoms for the last 2 to 3 days. Patient was brought in by EMS due to a history of multiple sclerosis. Patient does have a indwelling Carreon catheter. Patient appears nontoxic. Patient appears in mild pain. Review of Systems General: Reports: 10 or more systems reviewed and unremarkable except in HPI and below : Reports: other (Vaginal redness and irritation) PFS ED PFSH: Medical History Anxiety and depression Bipolar disorder Chronic pain Incomplete bladder emptying Multiple sclerosis Neurogenic bladder Port-A-Cath in place 06/12/23 Dr. Carvajal Urinary frequency Urinary incontinence Urinary urgency Surgical History History of hysterectomy History of tonsillectomy and adenoidectomy Family History Father Multiple sclerosis Other CAD (coronary artery disease) Diabetes Social History Smoking and tobacco status: never smoked Alcohol intake: never Substance/Drug Use: never Household members: spouse Marital status: Current occupational status: disabled Physical Exam Const: COMMON NORMALS: alert HENMT: COMMON NORMALS: normocephalic HEAD & SCALP: normocephalic Neck/C-Spine: COMMON NORMALS: full ROM Resp: COMMON NORMALS: normal respiratory effort and clear to auscultation bilaterally AUSCULTATION: clear to auscultation bilaterally Cardio: COMMON NORMALS: regular rate and regular rhythm RATE: regular rate RHYTHM: regular rhythm GI: COMMON NORMALS: Soft to palpation and non-tender PALPATION: Yes Soft to palpation : COMMON NORMALS: Yes no CVA tenderness BLADDER/KIDNEY EXAM: Yes no CVA tenderness EXTERNAL FEMALE EXAM: Yes normal appearance of the urethra, No external swelling and Yes other (Mild redness) Back/Pelvis: COMMON NORMALS: no CVA tenderness Extremity: COMMON NORMALS: full ROM Neuro: SENSORIUM/ORIENTATION: Yes alert Skin: COMMON NORMALS: turgor normal GENERAL SKIN EXAM: turgor normal Course Vital Signs: Vital signs: Vital Signs Temperature 98.2 F 08/04/23 19:29 Pulse Rate 83 08/04/23 20:52 Respiratory Rate 16 08/04/23 20:52 Blood Pressure 140/94 08/04/23 20:52 Pulse Oximetry 97 08/04/23 20:52 Oxygen Delivery Me thod Room Air 08/04/23 20:15 MDM - Female Medical Decision Making 42-year-old female comes in today for complaints of vaginal burning. Patient does have a indwelling cath. Patient appears nontoxic. Examination of the vaginal area notes some mild redness but no swelling or significant drainage or ulceration. Patient does have a indwelling Carreon catheter. Differential diagnosis includes yeast infection, vaginitis, STI, BV, UTI. Wet prep was unremarkable. Urinalysis did have some increased white blood cells and leukocyte esterase. We will go ahead and treat for urinary tract infection and put patient on some clotrimazole cream. Believe patient probably actually has has some menopausal symptoms. Recommend that medication and then follow-up with primary care for further instructions. No signs of serious illness was noted. Patient was stable and discharged to home. Lab Data Laboratory Results Urine Color Yellow (Yellow) 08/04/23 20:02 Urine Appearance Cloudy (CLEAR) A 08/04/23 20:02 Urine pH 7 (5-7) 08/04/23 20:02 Ur Specific [place] 1.005 (1.005-1.030) 08/04/23 20:02 Urine Protein 1+ (Negative) H 08/04/23 20:02 Urine Glucose (UA) Norm (Normal) 08/04/23 20:02 Urine Ketones Negative (Negative) 08/04/23 20:02 Urine Blood 3+ (Negative) H 08/04/23 20:02 Urine Nitrate Negative (Negative) 08/04/23 20:02 Urine Bilirubin Neg (Negative) 08/04/23 20:02 Urine Urobilinogen Norm mg/dL (Negative) 08/04/23 20:02 Ur Leukocyte Esterase 2+ (Negative) H 08/04/23 20:02 Urine RBC 5-10 /hpf (0-2) H 08/04/23 20:02 Urine WBC 5-10 /hpf (0-5) H 08/04/23 20:02 Ur Squamous Epith Cells 0-4 /hpf (0-5) H 08/04/23 20:02 Amorphous Sediment 4+ /hpf 08/04/23 20:02 Urine Bacteria 2+ /hpf (NONE) H 08/04/23 20:02 Discharge Plan Discharge Patient Disposition: Home Clinical Impression: UTI (urinary tract infection) due to Enterococcus Vaginitis Qualifiers: Chronicity: acute Qualified Code(s): N76.0 - Acute vaginitis Condition: Stable Prescriptions: New cephalexin 500 mg capsule 500 mg PO BID 7 Days Qty: 14 0RF clotrimazole 1 % cream 1 applic topical BID 14 Days Qty: 30 0RF hydrocodone-acetaminophen 5-325 mg tablet 1 tab PO Q8H PRN (Reason: pain (scale score 7-10)) Qty: 7 0RF No Action levetiracetam 750 mg tablet 750 mg PO BID clonazepam 0.5 mg tablet 1 mg PO BID azathioprine 50 mg tablet 50 mg PO DAILY tizanidine 4 mg tablet 4 mg PO Q8H PRN (Reason: Muscle Spasm) venlafaxine 37.5 mg capsule,extended release 24hr 75 mg PO DAILY fluoxetine 40 mg capsule 40 mg PO DAILY furosemide 40 mg Tablet 40 mg PO QMWF PRN (Reason: Edema) gabapentin 300 mg Capsule 300 mg PO TID epinephrine 0.3 mg/0.3 mL Syringe 0.3 mg IM ONCE PRN (Reason: Allergic Reaction) Rx Instructions: for 2 doses erenumab-aooe 70 mg/mL Auto-Injector 70 mg SUBCUT Q30D hydrocodone-acetaminophen 5-325 mg tablet 1 tab PO Q6H PRN (Reason: pain) Qty: 10 0RF DOK 100 mg capsule 100 mg PO BID Qty: 7 0RF Discharge Orders: Discharge ED (Routine); Ordered 08/04/23 Ordered By: Wilmer Hou Referrals: Inez Trivedi DO [Primary Care Provider] - Discharge Diet: Usual diet Discharge Activity: Increase activity as tolerated Patient Instructions: Bacterial Vaginosis (ED) Activity Restrictions/Additional Instructions: Encourage plenty water. Take antibiotic as directed 1 tablet twice a day for 7 days. Use clotrimazole cream twice daily for the next 2 weeks to help with vagina discomfort. Follow-up with primary care or specialist for further complaints. No signs of serious illness or injury was noted at this time. Return to the ER for worsening symptoms such as high fever, shortness of breath, or severe chest pain. Coding Level of Care Code ED [employer] for [employer]
[2023-08-04 20:15] VITALS: BP 123/81; PULSE 87; RESP 18; O2SAT 96
[2023-08-04 20:32] LABS: Urine Appearance Cloudy (CLEAR); Urine Color Yellow (Yellow)
[2023-08-04 20:33] LABS: Add Urine Microscopic? YES; Bilirubin Urine Neg (Negative); Blood Urine 3+ (Negative); Glucose Urine UA Norm (Normal); Ketones Urine Negative (Negative); Leukocyte Esterase Urine 2+ (Negative); Nitrate Urine Negative (Negative); Protein Urine 1+ (Negative); Specific Gravity, Urine 1.005 (1.005-1.030); Urobilinogen Urine Norm (Negative); pH Urine 7 (5-7)
[2023-08-04 20:34] LABS: Amorphous Sediment Urine 4+ /hpf; Bacteria Urine 2+ /hpf; Squamous Epithelial Cell Urine 0-4 /hpf (0-5)
[2023-08-04 20:35] LABS: Add Urine Culture? Yes
[2023-08-04] MEDS: HYDROcodone-acetaminophen 5-325 mg Tablet 1 TAB PO (20:48)
[2023-08-04] MEDS: cephALEXin 500 mg Capsule PO (20:48)
[2023-08-04 20:52] VITALS: BP 140/94; PULSE 83; RESP 16; O2SAT 97
--- NOTE | 2023-08-04 21:26 | PC.NURSE ---
sent home topical cream with pt per john pelayo NP.
== END 2023-08-04 21:27 | disposition home or self-care (01) ==
PROVIDERS: Emergency Provider Nurse Practitioner Family; PCP Family Medicine
DX: N39.0 Urinary tract infection, site not specified (principal); B95.2 Enterococcus as the cause of diseases classified elsewhere; N76.0 Acute vaginitis; G35 Multiple sclerosis
CPT/HCPCS: 81001; 87070; 87077; 87086; 87186; 87205; 87210; 99283

== ENCOUNTER → 2023-10-27 08:17 | Outpatient (BNVA) | payer MEDICARE, MEDICAID, SELFPAY | PROVIDERS: PCP Family Medicine; Visit Provider Surgery | DX: R10.9 Unspecified abdominal pain (principal); K59.09 Other constipation; G35 Multiple sclerosis | CPT/HCPCS: 99214 ==

== ENCOUNTER → 2023-11-24 08:31 | Outpatient (BNVA) | payer MEDICARE, MEDICAID, SELFPAY | PROVIDERS: PCP Family Medicine; Visit Provider Surgery | DX: K59.09 Other constipation; R10.31 Right lower quadrant pain; R10.32 Left lower quadrant pain | CPT/HCPCS: 99214 ==

== ENCOUNTER → 2024-07-22 11:22 | Outpatient (BNVA) | payer MEDICARE, MEDICAID, SELFPAY | PROVIDERS: PCP Family Medicine; Visit Provider Surgery | DX: L05.91 Pilonidal cyst without abscess (principal) | CPT/HCPCS: 99214 ==

== ENCOUNTER 2024-08-09 05:29 | Day surgery (SDC) | payer MEDICARE, MEDICAID, SELFPAY ==
[2024-08-09] VITALS (9 sets, daily range): BP systolic 113–145; BP diastolic 80–97; PULSE 83–106; RESP 16–18; TEMP 36.1–36.6; O2SAT 92–96; BMI 36.9
--- NOTE | 2024-08-09 06:13 | P.ANESASSM_ITS ---
Pre-Anesthetic Assessment Height/Weight: Height 5 ft 9 in Preop Diagnosis: Pilonidal cyst Operation Date: 08/09/24 07:00 Proposed Procedures p pilonidal cyst with cleft 14379, L05.91(Not Applicable) - Sebastian Carvajal, DO Was Beta Jeri taken within 24 hours: N/A Was Clonidine taken within 24 hours: N/A Social No alcohol and No tobacco Exam alert, oriented x 3, clear to auscultation bilaterally and regular rate & rhythm Airway Submandibular: within normal limits Cervical ROM: within normal limits Mallampati: Class III Dentition: other (Missing bottom teeth) Anesthetic Plan ASA status: 3 Anesthesia: General Other: No prior issues with anesthesia NPO since last night Patient has a history of MS, controlled on current biologic regimen Anxiety, bipolar History of grand mal seizures, on clonazepam twice daily and levetiracetam. Patient has not had a reported seizure in the last few years Patient takes steroids at the beginning of every month for 4 days, stress dose unnecessary but we will give IntraOp Decadron EKG showing sinus rhythm with mild T wave abnormality BMP ordered Plan for GETA Medications/Allergies Home Medications Medication Instructions Recorded Confirmed Last Taken Type fluoxetine 40 mg capsule 40 mg PO DAILY 09/28/20 08/08/24 08/08/24 History levetiracetam 750 mg tablet 750 mg PO BID 01/10/21 08/08/24 08/08/24 History epinephrine 0.3 mg/0.3 mL 0.3 mg IM ONCE PRN Allergic 05/26/22 08/08/24 08/08/24 History injection syringe Reaction erenumab-aooe 70 mg/mL 70 mg SUBCUT .EVERYOTHERDAY 05/26/22 08/08/24 08/08/24 History subcutaneous auto-injector furosemide 40 mg tablet 40 mg PO QMWF PRN Edema 05/26/22 08/08/24 08/08/24 History gabapentin 300 mg capsule 300 mg PO TID 05/26/22 08/08/24 08/08/24 History azathioprine 50 mg tablet 50 mg PO DAILY 12/02/22 08/08/24 08/08/24 History clonazepam 0.5 mg tablet 1 mg PO BID 12/02/22 08/08/24 08/08/24 History tizanidine 4 mg tablet 4 mg PO Q8H PRN Muscle Spasm 06/04/23 08/08/24 08/08/24 History venlafaxine 37.5 mg 75 mg PO DAILY 07/21/23 08/08/24 08/08/24 History capsule,extended release 24 hr Allergies Allergy/AdvReac Type Severity Reaction Status Date / Time bee venom protein (honey bee) Allergy Unknown Verified 08/09/24 05:59 tree nut Allergy ALGY-Swell Verified 08/09/24 05:59 Lip/Tongue/Throat [facility] Anesthesia Medical History Port-A-Cath in place 06/12/23 Dr. Carvajal Incomplete bladder emptying Neurogenic bladder Urinary urgency Urinary frequency Urinary incontinence Chronic pain Bipolar disorder Anxiety and depression Multiple sclerosis Surgical History History of tonsillectomy and adenoidectomy History of hysterectomy Family History Father Multiple sclerosis Other CAD (coronary artery disease) Diabetes Social History Smoking and tobacco/nicotine status: never used tobacco/nicotine Alcohol intake: never Substance/Drug Use: never Household members: spouse Marital status: Current occupational status: disabled Data Anesthesia Cardiac Studies: No Data to Display
--- NOTE | 2024-08-09 06:58 | W.PM.OPSUD ---
Surgery/Procedure H&P Update DATE OF PROCEDURE: August 09, 2024 DATE H&P PERFORMED: 07/22/24 H&P UPDATE INFORMATION: I have reviewed H&P completed within last 30 days, I have examined patient prior to procedure and No changes to prior documentation PREOP DIAGNOSIS: Pilonidal cyst PLANNED PROCEDURE: Operation Date: 08/09/24 07:00 Proposed Procedures p pilonidal cyst with cleft 67341, L05.91(Not Applicable) - Sebastian Carvajal DO
[2024-08-09 07:04] LABS: Anion Gap 14.4 (5-19); Blood Urea Nitrogen 8 mg/dL (6-20); Calcium 8.7 mg/dL (8.5-10.5); Carbon Dioxide 28 mmol/L (22-29); Chloride 107 mmol/L (98-107); Creatinine Clr Calc Pharmacy 162.3792; Glomerular Filtration Rate 109.1 mL/min (90-130); Glucose 100 mg/dL (65-115); Osmolality Calculated 298 mOsm/kg (285-295); Potassium 4.4 mmol/L (3.5-5.1); Sodium 145 mmol/L (136-145)
[2024-08-09] MEDS: sodium chloride 0.9% 1,000 ML 30 ML IV (07:09)
[2024-08-09] MEDS: piperacillin-tazobactam 3.375 GM in sodium chloride 0.9% (plus) 50 ML IV (07:15)
[2024-08-09] MEDS: lidocaine-epi 2% PF 1:200,000 20 mL SDV XX (08:21)
--- NOTE | 2024-08-09 08:49 | PM.OP ---
Operative Report Date of procedure: August 09, 2024 Surgeon: Sebastian Carvajal DO Procedure: Pre-op diagnosis: Recurrent pilonidal cyst Post-op diagnosis: Recurrent complex pilonidal cyst Procedure done: Cleft lift procedure (13345) with excision of recurrent complex pilonidal cyst (83106) Implants: 15 Haitian Neftali drain Specimens removed/disposition: Elliptical skin and subcutaneous excision with recurrent complex pilonidal cyst Surgeon: Seabstian Carvajal DO Anesthesia: General and Local Estimated blood loss (mL): 5 Complications: None apparent Brief History: This is a very pleasant 3-year-old female who presented to my office with a recurrent pilonidal cyst she desired excision. Cleft lift procedure with excision of recurrent pilonidal cyst is indicated. The risks and benefits were explained and documented. Procedure: The patient was wheeled operative room and general endotracheal intubation was achieved on the [facility] by the department of anesthesia. The patient was then placed prone on the OR table. Preoperatively the bilateral buttocks were pressed together to identify the area where the skin touches. This area was marked. The buttocks were then taped spread apart. The inner cleft was inspected prepped and draped in usual sterile fashion. A timeout was performed. All present were in agreement. Pilonidal sinus was located more to the right of the inner taylor cleft. Cyst was quite large and went up onto the back as well. An S shaped elliptical excision measuring 4.5 cm in width was performed over the pilonidal sinus from just left midline and into the right buttock. Electrocautery was then used to cut the fascia and dissect down through the subcutaneous tissue and around the pilonidal sinus, removing the sinus en bloc. There were a couple of sinus tracts both superiorly and to the left that were included in the specimen. A fasciocutaneous flap was then created on the left side with Bovie cautery in cautery mode, going back 6 cm. The thickness of the flap was just over 1 cm. A similar flap was created on the right side going back 6 cm. Flaps on both sides need to be created this far back due to lack of extra skin from a previous resection of pilonidal cyst. Hemostasis was achieved electrocautery. Renata was then placed down into the midline of the excision. The subcutaneous tissue was then approximated using 0 Vicryl in a simple interrupted fashion. A 10 Haitian Neftali drain was then placed into the wound coming out of the left buttock. This was sutured in place with 3-0 silk. The dermis was then approximated with interrupted 2-0 Vicryl. Skin was closed with running 4-0 Monocryl. Dermabond was applied. A drain sponge was applied around the drain. Tissue came together off midline and without tension. Patient tolerated procedure well.
--- NOTE | 2024-08-09 10:50 | ANE.PACU2 ---
Inpatient post-anesthesia follow up: Airway intact: Yes Vital signs: Temperature 98 F Pulse Rate 90 Respiratory Rate 16 Blood Pressure 138/88 Pulse Oximetry 92 Oxygen Delivery Me thod Room Air Oxygen Flow Rate 6 Fraction of Inspir ed Oxygen Hydration adequate: Yes Nausea and vomiting: No Pain level: 1 Mental status: Baseline
== END 2024-08-09 10:50 | disposition home or self-care (01) ==
PROVIDERS: Student in an Organized Health Care Education/Training Program; PCP Family Medicine; Visit Provider Surgery
PROC: (CPT 11772; principal; 2024-08-09 07:00)
DX: L05.91 Pilonidal cyst without abscess (principal); Z79.52 Long term (current) use of systemic steroids; G35 Multiple sclerosis
CPT/HCPCS: 11772; 15570; 36415; 80048; 88304; J2250; J2543; J2704; J3010; J7030

== ENCOUNTER → 2024-08-22 12:42 | Outpatient (BNVA) | payer MEDICARE, MEDICAID, SELFPAY | PROVIDERS: PCP Family Medicine; Visit Provider Surgery | DX: L05.91 Pilonidal cyst without abscess (principal); L89.153 Pressure ulcer of sacral region, stage 3; Z98.890 Other specified postprocedural states | CPT/HCPCS: 99214 ==

== ENCOUNTER → 2024-08-24 08:35 | Outpatient (BNVA) | payer MEDICARE, MEDICAID, SELFPAY | PROVIDERS: PCP Family Medicine; Visit Provider Thoracic Surgery (Cardiothoracic Vascular Surgery) | DX: I96 Gangrene, not elsewhere classified (principal); T81.31XD Disruption of external operation (surgical) wound, not elsewhere classified, subsequent encounter; Y83.8 Other surgical procedures as the cause of abnormal reaction of the patient, or of later complication, without mention of misadventure at the time of the procedure | CPT/HCPCS: 11042; 11045; 99213; A6446 ==

== ENCOUNTER → 2024-08-29 09:55 | Outpatient (BNVA) | payer MEDICARE, MEDICAID, SELFPAY | PROVIDERS: PCP Family Medicine; Visit Provider Surgery | DX: L89.153 Pressure ulcer of sacral region, stage 3; Z98.890 Other specified postprocedural states | CPT/HCPCS: 11402; 99214 ==

== ENCOUNTER → 2024-08-31 12:55 | Outpatient (BNVA) | payer MEDICARE, MEDICAID, SELFPAY | PROVIDERS: PCP Family Medicine; Visit Provider Thoracic Surgery (Cardiothoracic Vascular Surgery) | DX: I96 Gangrene, not elsewhere classified (principal); T81.31XD Disruption of external operation (surgical) wound, not elsewhere classified, subsequent encounter; Y83.8 Other surgical procedures as the cause of abnormal reaction of the patient, or of later complication, without mention of misadventure at the time of the procedure | CPT/HCPCS: 11042; A6446 ==

== ENCOUNTER → 2024-09-01 14:59 | Outpatient (BNVA) | payer MEDICARE, MEDICAID, SELFPAY | PROVIDERS: PCP Family Medicine; Visit Provider Surgery | DX: L89.153 Pressure ulcer of sacral region, stage 3 (principal) | CPT/HCPCS: 97605; 99214 ==

== ENCOUNTER → 2024-09-09 11:07 | Outpatient (BNVA) | payer MEDICARE, MEDICAID, SELFPAY | PROVIDERS: PCP Family Medicine; Visit Provider Surgery | DX: L89.153 Pressure ulcer of sacral region, stage 3 | CPT/HCPCS: 97605; 99214 ==

== ENCOUNTER → 2024-09-12 15:26 | Outpatient (BNVA) | payer MEDICARE, MEDICAID, SELFPAY | PROVIDERS: PCP Family Medicine; Visit Provider Surgery | DX: Z98.890 Other specified postprocedural states; L89.153 Pressure ulcer of sacral region, stage 3 | CPT/HCPCS: 97605; 99214 ==

== ENCOUNTER → 2024-09-19 15:48 | Outpatient (BNVA) | payer MEDICARE, MEDICAID, SELFPAY | PROVIDERS: PCP Family Medicine; Visit Provider Surgery | DX: L05.91 Pilonidal cyst without abscess (principal); L89.153 Pressure ulcer of sacral region, stage 3 | CPT/HCPCS: 97605; 99214 ==

== ENCOUNTER → 2025-06-26 08:47 | Outpatient (BNVA) | payer MEDICARE, MEDICAID, SELFPAY | PROVIDERS: PCP Family Medicine; Visit Provider Student in an Organized Health Care Education/Training Program | DX: Z95.828 Presence of other vascular implants and grafts (principal); Z45.2 Encounter for adjustment and management of vascular access device | CPT/HCPCS: 99214 ==

== ENCOUNTER 2025-07-05 07:41 | Day surgery (SDC) | payer MEDICARE, MEDICAID, SELFPAY ==
[2025-07-05] VITALS (10 sets, daily range): BP systolic 92–125; BP diastolic 47–76; PULSE 67–83; RESP 16–18; TEMP 36.1–36.2; O2SAT 95–96; BMI 40.6
--- NOTE | 2025-07-05 07:51 | SC_ITS ---
WS: [id number] C-arm fluoroscopy for insertion right infusion port, 07/05/2025 Clinical Data: Port placement Comparison: Portable chest, 06/12/2023 Findings: Dr. Garcia inserted a right infusion port into the superior vena cava. SC/C-arm FL for Pacemaker Impression: Placement of right infusion port.
--- NOTE | 2025-07-05 07:59 | W.PM.OPSUD ---
Surgery/Procedure H&P Update DATE OF PROCEDURE: July 05, 2025 DATE H&P PERFORMED: 06/26/25 H&P UPDATE INFORMATION: I have reviewed H&P completed within last 30 days, I have examined patient prior to procedure and No changes to prior documentation PLANNED PROCEDURE: Operation Date: 07/05/25 09:30 Proposed Procedures p Portacath Removal 90942, 35801, Z4532, Z95.828(Not Applicable) - Franklin Garcia MD s Insertion Central Venous Access Device Port a Cath Insertion(Not Applicable) - Franklin Garcia MD
--- NOTE | 2025-07-05 08:10 | ANES.PREANE2 ---
Pre-Anesthetic Assessment Height/Weight: Height 5 ft 9 in Preop Diagnosis: History of MS requiring infusions Operation Date: 07/05/25 09:30 Proposed Procedures p Portacath Removal 59484, 84822, Z4532, Z95.828(Not Applicable) - Franklin Garcia MD s Insertion Central Venous Access Device Port a Cath Insertion(Not Applicable) - Franklin Garcia MD Was Beta Jeri taken within 24 hours: N/A Was Clonidine taken within 24 hours: N/A Social No alcohol and No tobacco Anesthetic Plan ASA status: 3 Anesthesia: MAC Other: No prior issues with anesthesia NPO since yesterday evening History of MS, wheelchair-bound BMI 40 Seizure history on chronic Keppra. Last seizure was years ago EKG sinus rhythm Plan for MAC anesthesia with local via surgeon Medications/Allergies Home Medications ?Medication ?Instructions ?Recorded ?Confirmed ?Last Taken ?Type fluoxetine 40 mg capsule 40 mg PO DAILY 09/28/20 07/05/25 07/05/25 History 40 mg levetiracetam 750 mg tablet 750 mg PO BID 01/10/21 07/05/25 07/05/25 History 750 mg epinephrine 0.3 mg/0.3 mL 0.3 mg IM ONCE PRN Allergic 05/26/22 07/04/25 08/08/24 History injection syringe Reaction erenumab-aooe 70 mg/mL 70 mg SUBCUT .EVERYOTHERDAY 05/26/22 07/04/25 07/04/25 History subcutaneous auto-injector furosemide 40 mg tablet 40 mg PO QMWF PRN Edema 05/26/22 07/04/25 07/04/25 History clonazepam 0.5 mg tablet 1 mg PO BID 12/02/22 07/05/25 07/05/25 History 0.5mg tizanidine 4 mg tablet 4 mg PO Q8H PRN Muscle Spasm 06/04/23 07/05/25 07/05/25 History 4 mg venlafaxine 37.5 mg 75 mg PO DAILY 07/21/23 06/26/25 08/08/24 History capsule,extended release 24 hr pregabalin 200 mg capsule (Lyrica) 200 mg PO DAILY 06/26/25 07/05/25 07/05/25 History 200 mg Allergies Allergy/AdvReac Type Severity Reaction Status Date / Time bee venom protein (honey bee) Allergy Unknown Verified 07/04/25 09:11 tree nut Allergy ALGY-Swell Verified 07/04/25 09:11 Lip/Tongue/Throat [facility] Anesthesia Medical History (Updated 06/26/25 @ 10:00 by Franklin Garcia MD) Port-A-Cath in place 06/12/23 Dr. Carvajal Incomplete bladder emptying Neurogenic bladder Urinary urgency Urinary frequency Urinary incontinence Chronic pain Bipolar disorder Anxiety and depression Multiple sclerosis Surgical History S/P pilonidal cyst excision History of tonsillectomy and adenoidectomy History of hysterectomy Family History Father Multiple sclerosis Other CAD (coronary artery disease) Diabetes Social History Smoking and tobacco/nicotine status: never used tobacco/nicotine Alcohol intake: never Substance/Drug Use: never Household members: spouse Marital status: Current occupational status: disabled
[2025-07-05] MEDS: ceFAZolin 2,000 mg SDV 2000 MG IVP (08:41)
[2025-07-05] MEDS: heparin, porcine 1,000 unit/mL INJ 10 mL 6000 UNIT IRRIGATION (09:13)
[2025-07-05] MEDS: lidocaine-epi 1% 20 mL INJ 10 ML INJECTION (09:16)
[2025-07-05] MEDS: BUPivacaine 0.25% INJ 10 mL INJECTION (09:16)
--- NOTE | 2025-07-05 09:20 | P.OP_ITS ---
Operative Report Date of procedure: July 05, 2025 Pre-op diagnosis: Port-A-Cath dysfunction Post-op diagnosis: same Post-op findings: Port-A-Cath removal left chest. Tip sent to microbiology. Rest of catheter, cuff and port sent to pathology. New Port-A-Cath placed on right chest. Tip of catheter confirmed at atriocaval junction using intraoperative fluoroscopy. Procedure done: Port-A-Cath replacement (removal of old port and placement of new port) Implants: Port-A-Cath Specimens removed/disposition: Old Port-A-Cath from left chest sent to pathology. Tip of catheter sent to microbiology. Pathology: Old Port-A-Cath from left chest sent to pathology. Tip of catheter sent to microbiology. Surgeon: Franklin Garcia MD Used Building Materials Yard Worker: N/A Anesthesia: MAC Estimated blood loss (mL): 10 Complications: N/A Findings: Port-A-Cath removal left chest. Tip sent to microbiology. Rest of catheter, cuff and port sent to pathology. New Port-A-Cath placed on right chest. Tip of catheter confirmed at atriocaval junction using intraoperative fluoroscopy. Condition: stable Disposition: same day Brief History: 44-year-old female who has a Port-A-Cath which is not working properly. Discussed risk and benefits and patient agreed to proceed with Port-A-Cath replacement. Procedure: Patient was brought into the operating room and a timeout was carried out. Procedure was done under MAC. Patient was placed supine with the arms tucked and in Trendelenburg. Patient was prepped and draped in the usual sterile fashion. Local infiltration with 0.5% bupivicaine and 1% lidocaine with epinephrine done over left chest port site. Incision done with scalpel. Electrocautery used to dissect around port-a-cath. Port-a-cath pulled along with its cuff and entire catheter length. Pressure held over catheter tract site for 5 minutes. Adequate hemostasis achieved using electrocautery. I then centered my attention to the right chest and neck to place the new Port-a-cath. Using ultrasound guidance the right internal jugular vein was accessed. A guidewire was then placed down to the atriocaval junction using fluoroscopy. The finder needle was removed and the guidewire was secured. I then turned my attention to creating a pocket over the right chest. Make sure to locally infiltrated using plain lidocaine and bupivacaine at the site of the pocket and throughout the tunnel site. I confirmed adequate hemostasis at the pocket. I then proceeded to place the port that was already preassembled and flushed with heparinized saline and the chest pocket. I tunneled the catheter from the chest to the neck at the site where I accessed the internal jugular vein. I measured and adjusted the length of the catheter so it would reach the atrial caval junction. At this point, I used a dilator to dilate the tract into the internal jugular vein using fluoroscopy. I removed the guidewire and proceeded to thread the central venous catheter through the introducer. In the process, I removed the sheath as a completely pushed the catheter into the internal jugular vein. I then confirmed adequate placement of the catheter by performing intraoperative interpretation of fluoroscopy. The tip of the catheter was confirmed to be placed in the atriocaval junction. There were no kinks noted throughout the trajectory of the catheter. I then proceeded to test the port and was satisfied with its functionality. I proceeded to flushed the catheter without any issues. I then hep-locked the port. Skin was closed using deep dermal 3-0 Vicryl, subcuticular 4-0 Monocryl, and Dermabond. Patient was then transferred to PACU without any complications.
--- NOTE | 2025-07-05 11:04 | ANE.PACU2 ---
Inpatient post-anesthesia follow up: Airway intact: Yes Vital signs: Temperature 97.0 F Pulse Rate 67 Respiratory Rate 17 Blood Pressure 125/67 Pulse Oximetry 96 Oxygen Delivery Me thod Room Air Oxygen Flow Rate Fraction of Inspir ed Oxygen Hydration adequate: Yes Nausea and vomiting: No Pain level: 1 Mental status: Baseline
== END 2025-07-05 11:05 | disposition home or self-care (01) ==
PROVIDERS: PCP Family Medicine; Visit Provider Student in an Organized Health Care Education/Training Program
PROC: (CPT 36589; principal; 2025-07-05 09:30)
PROC: (CPT 36561; 2025-07-05 09:30)
DX: Z45.2 Encounter for adjustment and management of vascular access device (principal); T82.594A Other mechanical complication of infusion catheter, initial encounter; Z92.29 Personal history of other drug therapy; R56.9 Unspecified convulsions; F31.9 Bipolar disorder, unspecified; F41.8 Other specified anxiety disorders; G35 Multiple sclerosis
CPT/HCPCS: 36561; 36590; 76000; 87070; 87075; 87205; 88300; A4216; C1788; J0690; J1644; J2371; J2704; J3010; J3490; J7030; J9999

== ENCOUNTER → 2025-07-17 11:23 | Outpatient (BNVA) | payer MEDICARE, MEDICAID, SELFPAY | PROVIDERS: PCP Family Medicine; Visit Provider Student in an Organized Health Care Education/Training Program | DX: Z45.2 Encounter for adjustment and management of vascular access device (principal) | CPT/HCPCS: 99024 ==